=== PATIENT | female | born 1940 | race Caucasian/White ===

== ENCOUNTER → 2017-02-09 | Outpatient (CLI) | payer MEDICARE, MEDICAID ==
--- NOTE | 2017-02-09 11:29 | RADIOLOGY REPORT (SQ) ---
EXAM DESCRIPTION: SHOULDER BILAT 2 OR MORE VIEWS COMPLETED DATE/TIME: 02/09/2017 11:16 am REASON FOR STUDY: BILATERAL SHOULDER PAIN (M25.511,M25.512), PAIN (R52) M25.512 PAIN IN LEFT SHOULD ER M25.511 PAIN IN RIGHT SHOULDER R52 PAIN, UNSPECIFIED COMPARISON: None. NUMBER OF VIEWS: Three views. TECHNIQUE: Internal rotation, external rotation, and Y view images acquired of the right and left sh oulder. LIMITATIONS: None. FINDINGS: MINERALIZATION: Osteopenia. BONES: No acute fracture or dislocation. No worrisome bone lesions. JOINTS: No dislocation. VISUALIZED LUNGS AND RIBS: No pneumothorax. No rib fracture. SOFT TISSUES: No radiopaque foreign body. OTHER: No other significant finding. IMPRESSION: NEGATIVE STUDY OF THE RIGHT AND LEFT SHOULDERS. NO RADIOGRAPHIC EVIDENCE OF ACUTE INJURY . TECHNICAL DOCUMENTATION: JOB ID: [id number] [employer]- All Rights Reserved
--- NOTE | 2017-02-09 11:32 | RADIOLOGY REPORT (SQ) ---
EXAM DESCRIPTION: CERV SP 4 OR 5 VIEWS COMPLETED DATE/TIME: 02/09/2017 11:16 am REASON FOR STUDY: BILATERAL SHOULDER PAIN (M25.511,M25.512), PAIN (R52) M25.512 PAIN IN LEFT SHOULD ER M25.511 PAIN IN RIGHT SHOULDER R52 PAIN, UNSPECIFIED COMPARISON: 04/13/2016 NUMBER OF VIEWS: Five views. TECHNIQUE: AP, lateral, obliques and odontoid radiographic images acquired of the cervical spine. LIMITATIONS: None. FINDINGS: MINERALIZATION: Osteopenia ALIGNMENT: Anatomic. VERTEBRAE: Vertebral bodies of normal height. DISCS: Minimal disc space narrowing at C5-6 and C6-7. FORAMINA: There is narrowing of the right neural foramen at C4-5 secondary to uncovertebral osteophyt es and mild facet hypertrophy. Similar changes are present C5-6 on the right. On the left side ther e is mild narrowing at C4-5. LATERAL AND POSTERIOR ELEMENTS: Mild hypertrophic facet change in the upper cervical spine. HARDWARE: None in the spine. SOFT TISSUES: No masses or calcifications. Lung apices clear. OTHER: No other significant finding. IMPRESSION: Mild degenerative disc changes. Spondylosis and facet arthropathy. TECHNICAL DOCUMENTATION: JOB ID: [id number] [employer] All Rights Reserved
== END ==
LOC: RAD 10:45
PROVIDERS: ATTEND Obstetrics & Gynecology
DX: M25.512 Pain in left shoulder (principal); M25.511 Pain in right shoulder; M81.0 Age-related osteoporosis without current pathological fracture; R68.89 Other general symptoms and signs
CPT/HCPCS: 72050

== ENCOUNTER → 2017-04-24 | Outpatient (CLI) | payer MEDICARE, MEDICAID ==
--- NOTE | 2017-04-24 14:55 | RADIOLOGY REPORT (SQ) ---
EXAM DESCRIPTION: MRI LT UPPER JOINT WITHOUT COMPLETED DATE/TIME: 04/24/2017 2:18 pm REASON FOR STUDY: COMPLETE ROTATOR CUFF TEAR OR LEFT SHOULDER, NOT SPECIFIED TRAUMATIC M75.122 C OMPLETE ROTATR-CUFF TEAR/RUPTR OF LEFT SHOULDER, NO COMPARISON: Left shoulder plain films 02/09/2017 TECHNIQUE: Left shoulder images acquired and stored on PACS. Multiplanar imaging to include fat sens itive sequences such as T1, water sensitive sequences such as FST2/STIR, cartilage sensitive sequence s such as FSPD/gradient-echo sequences. LIMITATIONS: None. FINDINGS: BONE MARROW AND CORTEX: Subcortical cyst formation in the greater tuberosity left humeral head JOINT OR BURSAL EFFUSION: Moderate-sized joint effusion. There is fluid in the subcoracoid recess co ntaining several small subcentimeter loose bodies. There is also fluid in the axillary recess contai jhoan several small loose bodies. Small amount of fluid in the subacromial/ subdeltoid bursa. GLENO-HUMERAL ARTICULATION: No malalignment. Osteoarthritis with thinning of the articular cartilage over the superior surface of the humeral head ACROMION AND AC JOINT: Type 4 acromion with moderate acromioclavicular joint hypertrophy and mild na rrowing of the subacromial space. ROTATOR CUFF AND INTERVAL: There is high signal along the anterior edge of the subscapularis tendon e xtending into the rotator interval region from tendinopathy. Small full-thickness distal supraspinat us tear is suspected on sagittal images 3 and 4, and coronal images 8 and 9. Tendinopathy at the dis bela attachment of the subscapularis without definite tear. Infraspinatus, teres minor are unremarkab le LABRUM AND BICEPS LABRAL COMPLEX: Intra-articular long head biceps tendon is diffusely high in signa l from tendinopathy. Diffusely small glenoid labrum without paralabral cyst. PERIARTICULAR AND ADJACENT SOFT TISSUES: No masses or abnormal nodes. OTHER: No other significant finding. IMPRESSION: Small tear anterior attachment of the supraspinatus tendon Intra-articular long head biceps tendinopathy with diffusely degenerated labrum Joint effusion with loose bodies in the subcoracoid and axillary recesses TECHNICAL DOCUMENTATION: JOB ID: [id number] [employer]- All Rights Reserved
== END ==
LOC: RAD 12:59
PROVIDERS: ATTEND Orthopaedic Surgery
DX: M75.122 Complete rotator cuff tear or rupture of left shoulder, not specified as traumatic (principal)

== ENCOUNTER → 2017-08-03 | Outpatient (CLI) | payer MEDICARE, MEDICAID ==
--- NOTE | 2017-08-03 13:29 | RADIOLOGY REPORT (SQ) ---
EXAM DESCRIPTION: HAND LEFT 3 VIEWS COMPLETED DATE/TIME: 08/03/2017 11:31 am REASON FOR STUDY: S/P DISLOCATION L INDEX MTP JOINT COMPARISON: None. EXAM PARAMETERS: NUMBER OF VIEWS: Three views. TECHNIQUE: AP, lateral and oblique radiographic images acquired of the left hand. LIMITATIONS: None. FINDINGS: MINERALIZATION: Osteopenia. BONES: No acute fracture or dislocation. No worrisome bone lesions. JOINTS: Degenerative joint changes are seen in the interphalangeal joints, particularly distal interp halangeal joints. Milder degenerative joint changes seen in the 1st carpometacarpal joint. SOFT TISSUES: No soft tissue swelling. No foreign body. OTHER: No other significant finding. IMPRESSION: Degenerative joint disease. No fracture is seen. TECHNICAL DOCUMENTATION: JOB ID: [id number] [employer]- All Rights Reserved Reading location - IP/workstation name: [email or web address]
== END ==
LOC: RAD 10:57
PROVIDERS: ATTEND Obstetrics & Gynecology
DX: M18.9 Osteoarthritis of first carpometacarpal joint, unspecified (principal)

== ENCOUNTER 2018-12-23 11:57 | Emergency (ER) | payer MEDICARE, MEDICAID ==
[2018-12-23] MEDS ORDERED: NORMAL SALINE 250 ML IV PRN (12:29)
[2018-12-23 12:47] LABS: ABSOLUTE BASOPHILS # (AUTO) 0.1 10^3/uL (0.0-0.2); ABSOLUTE EOSINOPHILS # (AUTO) 0.1 10^3/uL (0.0-0.6); ABSOLUTE LYMPHOCYTES (AUTO) 1.7 10^3/uL (0.5-4.7); ABSOLUTE MONOCYTES (AUTO) 0.5 10^3/uL (0.1-1.4); ABSOLUTE NEUT (AUTO) 4.2 10^3/uL (1.7-8.2); BASOPHILS % (AUTO) 1.3 % (0-2); EOSINOPHILS % (AUTO) 0.9 % (0-6); HEMATOCRIT 23.9 % (36.0-47.0); LYMPHOCYTES % (AUTO) 25.7 % (13-45); MEAN CORPUSCULAR HEMOGLOBIN 24.5 pg (27.0-33.4); MEAN CORPUSCULAR HGB CONC 31.9 g/dL (32.0-36.0); MEAN CORPUSCULAR VOLUME 77 fl (80-97); MONOCYTES % (AUTO) 7.9 % (3-13); PLATELET COUNT 253 10^3/uL (150-450); RED CELL DISTRIBUTION WIDTH 16.3 % (11.5-14.0); SEGMENTED NEUTROPHILS % (AUTO) 64.2 % (42-78); TOTAL CELLS COUNTED % (AUTO) 100 %; WHITE BLOOD COUNT 6.5 10^3/uL (4.0-10.5)
[2018-12-23 12:50] LABS: HEMOGLOBIN 7.6 g/dL (12.0-15.5)
[2018-12-23 12:52] LABS: INTERNATIONAL RATION (INR) 0.98
[2018-12-23 13:10] LABS: ALANINE AMINOTRANSFERASE 28 U/L (9-52); ALBUMIN 3.9 g/dL (3.5-5.0); ALKALINE PHOSPHATASE 98 U/L (38-126); ANION GAP 6 (5-19); ASPARTATE AMINO TRANSFERASE 26 U/L (14-36); BILIRUBIN,DIRECT 0.2 mg/dL (0.0-0.4); BILIRUBIN,TOTAL 0.4 mg/dL (0.2-1.3); BLOOD UREA NITROGEN 15 mg/dL (7-20); CALCIUM 9.1 mg/dL (8.4-10.2); CARBON DIOXIDE 28 mmol/L (22-30); CHLORIDE 106 mmol/L (98-107); CREATINE KINASE 119 U/L (30-135); GLUCOSE 100 mg/dL (75-110); POTASSIUM 3.8 mmol/L (3.6-5.0); TOTAL PROTEIN 6.7 g/dL (6.3-8.2)
--- NOTE | 2018-12-23 13:33 | ER Document Report ---
ED GI Bleed / Rectal Pain - General Chief Complaint: Rectal Bleeding Stated Complaint: RECTAL BLEEDING Time Seen by Provider: 12/23/18 12:13 Primary Care Provider: ANDREW HOLLINGSWORTH MD [Primary Care Provider] - Follow up as needed DEREK SORIANO MD [ACTIVE STAFF] - Follow up tomorrow (Call in the morning to schedule an appointment tomorrow.) Mode of Arrival: Ambulatory Information source: Patient, Relative Notes: This 78-year-old female patient was sent from the office today for hemoglobin 5.5 and rectal bleeding. She was also noted to be hypotensive. 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 She was diagnosed is clinically cured according to her history. She reports 6 to 7 months ago she began having bleeding after bowel movements, she said it seemed like the stool was irritating something on the way out. She reports that she would sometimes have bright red bleeding, then dark clots, then the bleeding would stop. She has been feeling lightheaded with some exertional weakness for the past several days. She states that she has been referred for evaluation, but everyone she talked to wanted to do colonoscopy and she was unwilling to do that due to the colon cintia nse causing problems in the past. She states no one was willing to do anoscopy. She reports that night 11/2018 she woke up with active bright red bleeding. She reports it is been light bleeding since then. TRAVEL OUTSIDE OF THE [place] IN LAST 30 DAYS: No - Related Data Allergies/Adverse Reactions: codeine Allergy (Verified 12/23/18 12:02) morphine Allergy (Verified 12/23/18 12:02) Past Medical History - General Information source: Patient, Relative - Social History Smoking Status: Former Smoker - Quit in 1996. Cigarette use (# per day): No Chew tobacco use (# tins/day): No Smoking Education Provided: No Frequency of alcohol use: None Drug Abuse: Marijuana Occupation: Retired Lives with: Family Family History: Reviewed & Not Pertinent Patient has suicidal ideation: No Patient has homicidal ideation: No Pulmonary Medical History: Reports: Hx COPD Endocrine Medical History: Reports: Hx Hypothyroidism Malignancy Medical History: Reports: Other - Rectal cancer Musculoskeletal Medical History: Reports Hx Arthritis - spinal osteoarthritis on chronic pain management with Percocet 10 mg QID Psychiatric Medical History: Reports: Hx Anxiety Past Surgical History: Reports: Hx Hysterectomy, Hx Orthopedic Surgery - L hip replacement, Hx Rectal Surgery - Distal rectal biopsy prior to cancer treatment in 2008. Review of Systems - Review of Systems Constitutional: No symptoms reported EENT: No symptoms reported Cardiovascular: Lightheaded Respiratory: No symptoms reported Gastrointestinal: See HPI - Patient reports some abdominal cramping prior to bleeding. Genitourinary: No symptoms reported Female Genitourinary: Post menopausal Musculoskeletal: Back pain Skin: No symptoms reported Neurological/Psychological: No symptoms reported Physical Exam - Vital signs Vitals: Temp Pulse Resp BP Pulse Ox 98.5 F 67 16 154/65 H 96 12/23/18 12:05 12/23/18 12:05 12/23/18 12:05 12/23/18 12:05 12/23/18 12:05 Interpretation: Normal - General General appearance: Appears well, Alert In distress: None - HEENT Head: Normocephalic, Atraumatic Eyes: Normal, Pale conjunctiva Pupils: PERRL Neck: Normal - Respiratory Respiratory status: No respiratory distress Breath sounds: Normal - Cardiovascular Rhythm: Regular Heart sounds: Normal auscultation Murmur: No - Abdominal Inspection: Normal Bowel sounds: Normal Tenderness: Nontender - Rectal Tenderness: Yes Stool: Other - No stool in the vault, residue not show any blood. Hemorrhoids: None Notes: There is anal stenosis with a constricting tight ring. This is likely due to the prior radiation treatments. - Back Back: Normal - Extremities General upper extremity: Other - Nailbeds are little pale General lower extremity: Normal inspection - Neurological Neuro grossly intact: Yes - Psychological Associated symptoms: Normal affect, Normal mood - Skin Skin Temperature: Warm Skin Moisture: Dry Skin Color: Normal Course - Re-evaluation Re-evalutation: 12/23/18 18:07 The patient has not had any active bleeding since she arrived in the emergency room today. The patient's blood pressure was quite high when she came in and remained that way. She was given 10 mg hydralazine IV, eventually the pressure came down to a systolic of 133. She is not normally on blood pressure medications, and reports her blood pressure is usually very low. We will not start treatment at this time, but she will follow-up with her primary care, as she is going to be seen by the general surgeon tomorrow, when they check her vital signs if the BP is elevated they can refer her back to her primary care provider. - Vital Signs Vital signs: Temp Pulse Resp BP Pulse Ox 98 F 94 21 H 138/42 H 100 12/23/18 16:05 12/23/18 16:05 12/23/18 16:31 12/23/18 16:31 12/23/18 16:31 - Laboratory Result Diagrams: 12/23/18 12:20 12/23/18 12:20 Laboratory results interpreted by me: 12/23/18 12/23/18 12/23/18 12:20 12:20 12:20 RBC 3.10 L Hgb 7.6 L Hct 23.9 L MCV 77 L MCH 24.5 L MCHC 31.9 L RDW 16.3 H Iron 20.2 L Vitamin B12 226.0 L Crossmatch See Detail 12/23/18 13:18 RBC Hgb Hct MCV MCH MCHC RDW Iron Vitamin B12 Crossmatch See Detail - Consults Dr. Soriano Time consulted: 17:48 Consulted provider: follow-up in office - We will see in the office tomorrow. Have her call in the morning for an appointment time tomorrow. - Transfer of Care Care transferred to following provider: Dr. Surinder Matos Notes: 12/23/18 18:15 Patient is waiting for her second unit of blood to be transfused, and then she will be ready to go home. Critical Care Note - Critical Care Note Total time excluding time spent on procedures (mins): 35 Discharge - Discharge Clinical Impression: Rectal bleeding, Acute on chronic blood loss anemia, Iron deficiency anemia due to chronic blood loss, Elevated blood pressure reading Hypertension Qualifiers: Hypertension type: essential hypertension Qualified Code(s): I10 - Essential (primary) hypertension Condition: Stable Disposition: HOME, SELF-CARE Additional Instructions: Call Dr. Soriano tomorrow morning to schedule an appointment in the office for tomorrow. If your blood pressure is elevated when you see Dr. Soriano in the office tomorrow, ask him to refer you back to Dr. Hollingsworth. RETURN TO THE EMERGENCY ROOM IF ANY NEW OR WORSENING SYMPTOMS. Referrals: ANDREW HOLLINGSWORTH MD [Primary Care Provider] - Follow up as needed DEREK SORIANO MD [ACTIVE STAFF] - Follow up tomorrow (Call in the morning to schedule an appointment tomorrow.)
[2018-12-23 13:46] LABS: ABSOLUTE RETICS # 0.076 10^6/uL (0.028-0.122); RETICULOCYTE COUNT (AUTO) 2.44 % (0.66-2.85)
[2018-12-23 14:30] LABS: APPEARANCE,URINE CLEAR; BILIRUBIN,URINE NEGATIVE (NEGATIVE); COLOR,URINE STRAW; GLUCOSE, URINE NEGATIVE (NEGATIVE); KETONES,URINE NEGATIVE (NEGATIVE); LEUKOCYTE ESTERASE,URINE NEGATIVE (NEGATIVE); NITRITE,URINE NEGATIVE (NEGATIVE); PROTEIN,URINE NEGATIVE (NEGATIVE); URINE SPECIFIC GRAVITY 1.006; UROBILINOGEN,URINE NEGATIVE mg/dL (<2.0)
[2018-12-23] MEDS ORDERED: HYDRALAZINE HCL INJ/PF 20 MG/1 ML SDV IV ONE (15:06)
[2018-12-23 15:53] LABS: IRON(TIBC) 20.2 ug/dL (37-170)
[2018-12-23 21:35] VITALS: BP 188/90
== END 2018-12-23 21:19 | disposition home or self-care (01) ==
LOC: ER 11:57
DX: K62.5 Hemorrhage of anus and rectum (principal); D50.0 Iron deficiency anemia secondary to blood loss (chronic); I10 Essential (primary) hypertension; R42 Dizziness and giddiness; R53.1 Weakness; Z85.048 Personal history of other malignant neoplasm of rectum, rectosigmoid junction, and anus; Z87.891 Personal history of nicotine dependence; J44.9 Chronic obstructive pulmonary disease, unspecified
CPT/HCPCS: 99285; 96374; 86900; 86901; 36415; 36430; 86850; 82607; 82550; 82728; 82746; 83540; 83550; 85025; 85610; 85045; 80053; 81001; 84484; 86920; P9016; J0360

== ENCOUNTER → 2019-01-09 | Day surgery (SDC) | payer MEDICARE, MEDICAID ==
[~2019-01-09] MED LIST: BUPIVACAINE HCL 0.5 % INJ/PF 30 ML SDV ONE; LIDOCAINE 1% INJ-PF (10 MG/ML) 30 ML SDV ONE
--- NOTE | 2019-01-09 09:38 | Operative Report ---
PREOPERATIVE DIAGNOSIS: Spondylolisis without myopathy or radiculopathy M47.818// Lumbar Sacral Spondylolisis without myopathy or radiculopathy M47.817 POSTOPERATIVE DIAGNOSIS:Spondylolisis without myopathy or radiculopathy M47.818// Lumbar Sacral Spondylolisis without myopathy or radiculopathy M47.817 PROCEDURE: 1. Radiofrequency Ablation of bilateral L5 dorsal Ramus 2. Sacroiliac Joint Ablation - Lateral Branches of bilateral S1, S2, S3 DATE OF PROCEDURE: January 09, 2019 ANESTHESIA: Local COMPLICATIONS: None CONSENT: A full description of the procedure was provided including benefits as well as possible complications. All questions were answered and informed consent was given and signed. ASA guidelines for fasting were verified prior to se dation. PROCEDURE IN DETAIL The patient was brought into the fluoroscopy suite and carefully assisted into the prone position on the fluoroscopy table and allowed to adjust to a position of comfort. A grounding pad was placed on the right thigh. The low back and buttocks were widely prepped with a chloraprep solution, allowed to air dry and draped in standard sterile surgical fashion. Local anesthesia was provided by 12 mL of 1 % lidocaine delivered with a 25 g needle. PROCEDURE #1: Radiofrequency Ablation of Dorsal Ramus of bilateral L5. A 17g 100mm radiofrequency introducer needle was placed to the planned anatomic target, guided with intermittent fluoroscopy with a perpendicular approach, to terminally place at the lateral sacral ala. The stylets were removed and the radiofrequency probes with a 4mm active tip were then inserted. Needle tip position of the probes were verified in the AP, oblique, and lateral views. At each site, the medial branch nerve was stimulated at 2Hz to a maximum of 1- 2volts determined to finalize safe needle and electrode placement. The patient was awake and responsive during this portion of the procedure. Each target was anesthetized with 2mL of 2 % Sensorcaine anesthesia for lesioning and then each target was lesioned at 80 degrees Celsius for 2 minutes and 30 seconds. Tissue impedences were noted to be between 250 and 500 Ohms. PROCEDURE #2: Radiofrequency Ablation of bilateral S1, S2, S3 Lateral Branches Using the AP fluoroscopic view for visualization of the lateral PSFA as defined by the pre-placed 27-gauge Quincke needles, appropriate skin starting positions were defined. Using the PSFA as a "clock-face", the positions were: S1; bilateral = 1 and 5 oclock S2; bilateral = 1 and 5 oclock S3; bilateral = 3 oclock Using fluoroscopic guidance, a 17g introducer needle was inserted sequentially onto the target positions described above until the introducer tip touched the bony surface of the sacrum. The stylet was withdrawn from the introducer and the radiofrequency probe with a 4 mm active tip was fully inserted into the introducer. A lateral view was obtained for standard reference. At each of the targets, needle placement was verified with the use of multi-planar fluoroscopy. The needle tip position was approximately 7 - 10mm lateral to the PSFA as determined by using an Epsilon ruler. At each site, the lateral branch nerve was stimulated at 2 Hz to a maximum of 1- 2 volts determined to finalize safe needle and electrode placement. The patient was awake and responsive during this portion of the procedure. Each target was anesthetized with 2 mL of 2 % Sensorcaine anesthesia for lesioning and then each target was lesioned at 80 degrees Celsius for 2 minutes and 30 seconds. Tissue impedences were noted to be between 250- 500 Ohms. At the conclusion of the lesioning the needles were removed and bandages placed over the needle placement sites and the patient returned to the supine position on a stretcher and transported to the recovery room without hemodynamic, neurologic, or allergic reactions. Fluoroscopic images were printed for hard copy recording and digitally archived. FLUOROSCOPIC INTERPRETATION: Appropriate epidurogram obtained. Appropriate lesioning of the 10 targets noted. POST PROCEDURE EVALUATION: The patient was comfortable in the recovery room. The patient is aware that pain may worsen before remitting and 4 6 weeks may be required prior to the onset of pain relief. IMPRESSION: 1. Technically successful sacral lateral branch, lumbar dorsal ramus for denervation from L5-S3 on the bilateral without complication. 2. RTC in 2 weeks. 3. Estimated Blood Loss: None 4. Fluoroscopy time: 30 seconds
== END ==
LOC: RAD 09:10
PROVIDERS: ATTEND Family Medicine
DX: M47.817 Spondylosis without myelopathy or radiculopathy, lumbosacral region (principal)
CPT/HCPCS: 64635; 64640 ×3; J3490 ×2

== ENCOUNTER 2019-01-16 09:58 | Observation (INO) | payer MEDICARE, MEDICAID ==
[2019-01-06 11:44] LABS: HEMATOCRIT 31.7 % (36.0-47.0); HEMOGLOBIN 10.1 g/dL (12.0-15.5); MEAN CORPUSCULAR HEMOGLOBIN 25.6 pg (27.0-33.4); MEAN CORPUSCULAR HGB CONC 31.9 g/dL (32.0-36.0); MEAN CORPUSCULAR VOLUME 80 fl (80-97); PLATELET COUNT 241 10^3/uL (150-450); RED BLOOD COUNT 3.95 10^6/uL (3.72-5.28); RED CELL DISTRIBUTION WIDTH 17.5 % (11.5-14.0); WHITE BLOOD COUNT 4.7 10^3/uL (4.0-10.5)
[2019-01-06 12:00] LABS: ANION GAP 8 (5-19); BLOOD UREA NITROGEN 12 mg/dL (7-20); CALCIUM 9.1 mg/dL (8.4-10.2); CARBON DIOXIDE 30 mmol/L (22-30); CHLORIDE 102 mmol/L (98-107); GLUCOSE 98 mg/dL (75-110); POTASSIUM 3.6 mmol/L (3.6-5.0)
--- NOTE | 2019-01-07 09:46 | EKG REPORT ---
SEVERITY:- ABNORMAL ECG - SINUS RHYTHM CONSIDER POSTERIOR INFARCT BORDERLINE PROLONGED QT INTERVAL : Confirmed by: Dorcas Ramírez 07-Jan-2019 09:45:40
[~2019-01-16 09:58] MED LIST changes: +ACETAMINOPHEN 325 MG TABLET PO PRN; -BUPIVACAINE HCL 0.5 % INJ/PF 30 ML SDV ONE; +LIDOCAINE 0.5% INJ-PF (5 MG/ML) 50 ML SDV SUBCUT PRN; -LIDOCAINE 1% INJ-PF (10 MG/ML) 30 ML SDV ONE; +RINGERS SOLUTION,LACTATED 1,000 ML IV PRN
[2019-01-16 11:41] LABS: HEMATOCRIT 27.2 % (36.0-47.0); HEMOGLOBIN 8.7 g/dL (12.0-15.5); MEAN CORPUSCULAR HGB CONC 32.1 g/dL (32.0-36.0); MEAN CORPUSCULAR VOLUME 78 fl (80-97); PLATELET COUNT 227 10^3/uL (150-450); RED BLOOD COUNT 3.48 10^6/uL (3.72-5.28); RED CELL DISTRIBUTION WIDTH 17.6 % (11.5-14.0); WHITE BLOOD COUNT 5.4 10^3/uL (4.0-10.5)
[2019-01-16] MEDS ORDERED: PROPOFOL INJ 200 MG/20 ML VIAL IV ONE (12:47)
[2019-01-16] MEDS ORDERED: MORPHINE SULFATE 10 MG/ML INJ IV PRN (13:50)
[2019-01-16] MEDS ORDERED: DEXTROSE 5%-LACTATED RINGERS 1,000 ML IV PRN (13:50)
--- NOTE | 2019-01-16 14:29 | Operative Report ---
Nonrecallable Operative Report DATE OF SURGERY: 01/16/19 PREOPERATIVE DIAGNOSIS: History of rectal cancer lower GI bleed POSTOPERATIVE DIAGNOSIS: Rectal cancer lower GI bleed OPERATION: Colonoscopy SURGEON: YVETTE MERCHANT ANESTHESIA: Moderate Sedation TISSUE REMOVED OR ALTERED: None COMPLICATIONS: None ESTIMATED BLOOD LOSS: 0 INTRAOPERATIVE FINDINGS: See dictation PROCEDURE: Patient was brought to the operating room awake alert stable condition and given IV sedation for this procedure she was placed in a left lateral decubitus position the Olympus colonoscope was easily passed into the rectum and traversed the sigmoid colon up to approximately 40 cm no evidence of active bleeding to th is point 40 cm the scope had difficulty negotiating the sigmoid colon and it was difficult to see whether that was secondary to redundant colon versus a diverticular stricture there are multiple diverticulum seen in the sigmoid colon. I asked Dr. Bower from to come into the operating room for consultation regarding the difficulty in passing the scope past 40 cm he suggested that may be secondary to a diverticular stricture versus peridiverticular edema and therefore we did not persist in trying to advance the scope past 40 cm. As we slowly withdrew the scope we noted multiple diverticuli in the sigmoid colon as we count came through the rectum there was no evidence of any masses or mucosal abnormalities we visualized the hemorrhoids there were small grade 2 hemorrhoids without evidence of recent or active bleeding. Then removed the scope which completed the procedure Patient will be admitted overnight to the hospital for a blood transfusion and obtain a barium enema tomorrow. Sponge needle counts were correct x2 estimated blood loss was 0
[2019-01-16 18:28] LABS: HEMOGLOBIN 9.3 g/dL (12.0-15.5); MEAN CORPUSCULAR HEMOGLOBIN 26.4 pg (27.0-33.4); MEAN CORPUSCULAR HGB CONC 33.2 g/dL (32.0-36.0); MEAN CORPUSCULAR VOLUME 80 fl (80-97); PLATELET COUNT 209 10^3/uL (150-450); RED BLOOD COUNT 3.52 10^6/uL (3.72-5.28); RED CELL DISTRIBUTION WIDTH 17.1 % (11.5-14.0); WHITE BLOOD COUNT 8.8 10^3/uL (4.0-10.5)
[2019-01-16] MEDS ORDERED: HYDRALAZINE HCL INJ/PF 20 MG/1 ML SDV IV PRN (21:07)
[2019-01-16] MEDS: FAMOTIDINE INJ/PF 20 MG/2 ML SDV IV SCH (21:27)
[2019-01-17 02:27] LABS: ABSOLUTE LYMPHOCYTES (AUTO) 1.1 10^3/uL (0.5-4.7); ABSOLUTE MONOCYTES (AUTO) 0.5 10^3/uL (0.1-1.4); BASOPHILS % (AUTO) 0.6 % (0-2); EOSINOPHILS % (AUTO) 0.2 % (0-6); HEMATOCRIT 32.5 % (36.0-47.0); HEMOGLOBIN 11.1 g/dL (12.0-15.5); LYMPHOCYTES % (AUTO) 12.9 % (13-45); MEAN CORPUSCULAR VOLUME 79 fl (80-97); MONOCYTES % (AUTO) 6.2 % (3-13); PLATELET COUNT 202 10^3/uL (150-450); RED CELL DISTRIBUTION WIDTH 16.9 % (11.5-14.0); SEGMENTED NEUTROPHILS % (AUTO) 80.1 % (42-78); TOTAL CELLS COUNTED % (AUTO) 100 %; WHITE BLOOD COUNT 8.7 10^3/uL (4.0-10.5)
[2019-01-17] MEDS ORDERED: LORAZEPAM INJ 2 MG/1 ML VIAL IV ONE (03:15)
[2019-01-17 06:41] LABS: ABSOLUTE BASOPHILS # (AUTO) 0.1 10^3/uL (0.0-0.2); ABSOLUTE LYMPHOCYTES (AUTO) 1.3 10^3/uL (0.5-4.7); ABSOLUTE MONOCYTES (AUTO) 0.5 10^3/uL (0.1-1.4); ABSOLUTE NEUT (AUTO) 5.8 10^3/uL (1.7-8.2); BASOPHILS % (AUTO) 0.7 % (0-2); HEMATOCRIT 30.7 % (36.0-47.0); HEMOGLOBIN 10.3 g/dL (12.0-15.5); LYMPHOCYTES % (AUTO) 16.8 % (13-45); MEAN CORPUSCULAR HEMOGLOBIN 26.9 pg (27.0-33.4); MEAN CORPUSCULAR HGB CONC 33.6 g/dL (32.0-36.0); MEAN CORPUSCULAR VOLUME 80 fl (80-97); MONOCYTES % (AUTO) 6.1 % (3-13); PLATELET COUNT 186 10^3/uL (150-450); RED BLOOD COUNT 3.83 10^6/uL (3.72-5.28); RED CELL DISTRIBUTION WIDTH 17.1 % (11.5-14.0); SEGMENTED NEUTROPHILS % (AUTO) 76.4 % (42-78); TOTAL CELLS COUNTED % (AUTO) 100 %; WHITE BLOOD COUNT 7.5 10^3/uL (4.0-10.5)
[2019-01-17 06:53] LABS: ANION GAP 6 (5-19); BLOOD UREA NITROGEN 9 mg/dL (7-20); CARBON DIOXIDE 28 mmol/L (22-30); CHLORIDE 104 mmol/L (98-107); GLUCOSE 114 mg/dL (75-110)
[2019-01-17 07:03] LABS: POTASSIUM 2.9 mmol/L (3.6-5.0)
[2019-01-17] MEDS ORDERED: DEXTROSE 50%-WATER 25 GM/50 ML DISP.SYRIN IV PRN ×2 (07:50)
[2019-01-17] MEDS ORDERED: DEXTROSE 40% GEL 15 GM TUBE PO PRN ×2 (07:50)
[2019-01-17] MEDS ORDERED: GLUCAGON,HUMAN RECOMB 1 MG INJ SUBCUT PRN (07:50)
--- NOTE | 2019-01-17 08:55 | PDOC PROGRESS REPORT ---
Subjective Progress Note for:: 01/17/19 Reason For Visit: LOWER GI BLEED s/p colonoscopy lower gi bleed. Physical Exam Vital Signs: Temp Pulse Resp BP Pulse Ox 99.5 F 72 16 163/87 H 98 01/16/19 23:45 01/16/19 23:45 01/16/19 23:45 01/16/19 23:45 01/16/19 23:45 Intake & Output 01/16/19 01/17/19 01/18/19 06:59 06:59 06:59 Intake Total 700 Output Total 0 Balance 700 Weight 54.4 kg General appearance: PRESENT: no acute distress Head exam: PRESENT: normocephalic Eye exam: PRESENT: EOMI Ear exam: PRESENT: normal external ear exam Mouth exam: PRESENT: moist Teeth exam: PRESENT: edentulous Neck exam: PRESENT: full ROM Respiratory exam: PRESENT: clear to auscultation zainab Cardiovascular exam: PRESENT: RRR Pulses: PRESENT: normal radial pulses, normal femoral pulses Vascular exam: PRESENT: normal capillary refill GI/Abdominal exam: PRESENT: soft Rectal exam: PRESENT: deferred Extremities exam: PRESENT: full ROM Musculoskeletal exam: PRESENT: full ROM Neurological exam: PRESENT: alert, awake, oriented to person Skin exam: PRESENT: dry Results Laboratory Results: 01/17/19 06:10 01/17/19 06:10 01/16/19 01/16/19 01/16/19 11:27 12:34 18:14 WBC 5.4 8.8 RBC 3.48 L 3.52 L Hgb 8.7 L 9.3 L Hct 27.2 L 28.0 L MCV 78 L 80 MCH 25.0 L 26.4 L MCHC 32.1 33.2 RDW 17.6 H 17.1 H Plt Count 227 209 Seg Neutrophils % Sodium Potassium Chloride Carbon Dioxide Anion Gap BUN Creatinine Est GFR ( Amer) Glucose Calcium Blood Type O POSITIVE Antibody Screen NEGATIVE 01/17/19 01/17/19 01/17/19 02:21 06:10 06:10 WBC 8.7 7.5 RBC 4.10 3.83 Hgb 11.1 L 10.3 L Hct 32.5 L 30.7 L MCV 79 L 80 MCH 27.0 26.9 L MCHC 34.0 33.6 RDW 16.9 H 17.1 H Plt Count 202 186 Seg Neutrophils % 80.1 H 76.4 Sodium 138.2 Potassium 2.9 L* Chloride 104 Carbon Dioxide 28 Anion Gap 6 BUN 9 Creatinine 0.61 Est GFR ( Amer) > 60 Glucose 114 H Calcium 9.0 Blood Type Antibody Screen Assessment & Plan - Plan Summary Plan Summary: lower gi bleed no currentl evidence of bleeding. hx of anal cancer s/p colonoscopy yesterday to 40cm multiple diverticuli, no obvious bleeding awaiting BE today to r/o stricture at above 40cm h/h 10. 3 this am down from 11.1 yesterday after txn 2 units prbc
[2019-01-17] MEDS: POTASSIUM CHLORIDE 20 MEQ/50 ML RTU IV SCH ×3 (09:16→15:52)
[2019-01-17] MEDS: FAMOTIDINE INJ/PF 20 MG/2 ML SDV IV SCH ×2 (09:35→22:04)
--- NOTE | 2019-01-17 11:24 | RADIOLOGY REPORT (SQ) ---
EXAM DESCRIPTION: BARIUM ENEMA W/AIR COMPLETED DATE/TIME: 01/17/2019 11:02 am REASON FOR STUDY: lower gi bleed. poss diverticular stricture K62.5 HEMORRHAGE OF ANUS AND RECTUM Z 85.048 PRSNL HX OF MALIG NEOPLM OF RECTUM, RECTOSIG JUNCT, Z01.818 ENCOUNTER FOR OTHER PREPROCEDUR AL EXAMINATION History of anal cancer, treated COMPARISON: None. FLUOROSCOPY TIME: 4 minutes of fluoroscopy was used. 26 images saved to PACS. TECHNIQUE: Following retrograde filling of the colon with barium and air, fluoroscopic spot and over head imaging of the colon was obtained and saved to PACS. LIMITATIONS: None. FINDINGS: ELEPHANT KEEPER KUB: Normal abdominal film with adequate bowel prep. CECUM: Normal mucosa without intraluminal filling defects, intrinsic or extrinsic masses, or lesions. There is reflux contrast into the terminal ileum. There is retrograde filling of a normal-appearin g appendix. ASCENDING COLON: Normal mucosa without intraluminal filling defects, intrinsic or extrinsic masses, o r lesions. TRANSVERSE COLON: Normal mucosa without intraluminal filling defects, intrinsic or extrinsic masses, or lesions. DESCENDING COLON: Normal mucosa without intraluminal filling defects, intrinsic or extrinsic masses, or lesions. SIGMOID COLON: Few scattered diverticulum noted. No strictures identified. No masses identified. RECTUM: Normal mucosa without intraluminal filling defects, intrinsic or extrinsic masses, or lesions . The patient experienced moderate discomfort with insertion of the enema tube and retention balloon insufflation. There appears to be diffuse narrowing of the rectum, possibly due to previous therapy and treatment of anal cancer. POST EVAC: Partial evacuation of barium with no additional findings. OTHER: No other significant finding. IMPRESSION: 1. THE RECTUM IS NARROWED AND POORLY DISTENDED. MODERATE DISCOMFORT WITH WITH INSERTIO N OF THE ENEMA TIP AND INSUFFLATION OF THE RETENTION BALLOON, COULD BE RELATED TO PREVIOUS RADIATION THERAPY IN TREATMENT OF ANAL CANCER. 2. MILD SIGMOID DIVERTICULOSIS WITHOUT EVIDENCE OF STRICTURE OR MASS. 3. REMAINDER THE COLONS ARE UNREMARKABLE. COMMENT: Quality ID [id number]: Final reports for procedures using fluoroscopy that document radiation exp osure indices, or exposure time and number of fluorographic images (if radiation exposure indices are not available) TECHNICAL DOCUMENTATION: JOB ID: [id number] [employer]- All Rights Reserved Reading location - IP/workstation name: [email or web address] [email or web address]
--- NOTE | 2019-01-17 15:37 | Progress Note ---
Provider Note Provider Note: Air contrast barium enema reviewed. Exam shows no evidence of masses within the colon however there is a proximal r ectal stricture with multiple diverticula in the sigmoid colon questionable stricturing of the sigmoid colon but no obvious obstruction. Suspect the lower GI bleed was secondary to diverticular bleed. We will start the patient on a diet and advance it to regular as tolerated she could be discharged home possibly tomorrow she will follow-up in my office for further discussion related to her second time diverticular bleed.
[2019-01-17] MEDS: POTASSIUM CHLORIDE 20 MEQ PACKET PO SCH (17:57)
[2019-01-18] MEDS: POTASSIUM CHLORIDE 20 MEQ PACKET PO SCH (01:53)
--- NOTE | 2019-01-18 06:41 | PDOC DISCHARGE SUMMARY ---
General - Admit/Disc Date/PCP Admission Date/Primary Care Provider: 01/16/19 17:07 ANDREW HOLLINGSWORTH MD Discharge Date: 01/18/19 - Additional Information Resuscitation Status: Full Code Discharge Diet: As Tolerated Discharge Activity: Activity As Tolerated Home Medications: Alprazolam [Xanax 0.5 mg Tablet] 0.5 mg PO DAILYP PRN 01/17/19 Diclofenac Sodium [Voltaren] 100 gm TP DAILYP PRN 01/17/19 Eszopiclone [Lunesta] 3 mg PO QHS 01/17/19 Oxycodone HCl/Acetaminophen [Percocet 10-325 Mg Tablet] 1 each PO Q6HP PRN 01/17/19 History of Present Illness History of Present Illness: LAVELLE LINDER is a 78 year old female who was admitted to the hospital on 01/16/2019 for elective colonoscopy. She was brought in the hospital electively for a routine colonoscopy during which time we were unable to pass the scope past 40 cm. She had a previous history of lower GI bleed. She had a previous history of anal cancer treated with nigra protocol. Because were unable to pass the scope she was admitted for an elective barium enema the following day. She is undergoing colonoscopy because of history of heme hematochezia and was found upon her admission to the hospital for that elective procedure that she r eported some recurrent hematochezia. She was transfused 2 units of blood on the day of admission for hemoglobin of 8.3 and had no further bleeding throughout her hospital course Her barium enema the following day showed a stricture of her proximal's rectum distal sigmoid colon with multiple diverticula. There is no evidence of any obstructing mass. During the 36 hours here at the hospital she did well she was passing normal bowel movements without further hematochezia. Hospital Course Hospital Course: She was brought in the hospital electively for a routine colonoscopy during which time we were unable to pass the scope past 40 cm. She had a previous history of lower GI bleed. She had a previous history of anal cancer treated with nigra protocol. Because were unable to pass the scope she was admitted for an elective barium enema the following day. She is undergoing colonoscopy because of history of heme hematochezia and was found upon her admission to the hospital for that elective procedure that she reported some recurrent hematochezia. She was transfused 2 units of blood on the day of admission for hemoglobin of 8.3 and had no further bleeding throughout her hospital course Her barium enema the following day showed a stricture of her proximal's rectum distal sigmoid colon with multiple diverticula. There is no evidence of any obstructing mass. During the 36 hours here at the hospital she did well she was passing normal bowel movements without further hematochezia On the day of discharge she is afebrile stable vital signs passing flatus and small bowel movements without blood she is tolerating a regular diet she will be discharged home today with follow-up in 1 to 2 weeks after discharge for further discussion on her diverticulosis and proximal rectal stricture. Physical Exam Vital Signs: Temp Pulse Resp BP Pulse Ox 98.5 F 72 15 150/60 H 100 01/18/19 00:14 01/18/19 00:14 01/18/19 00:14 01/18/19 00:14 01/18/19 00:14 Intake & Output 01/16/19 01/17/19 01/18/19 06:59 06:59 06:59 Intake Total 700 1585 Output Total 0 Balance 700 1585 Weight 54.4 kg 54.7 kg General appearance: PRESENT: no acute distress Head exam: PRESENT: normocephalic Eye exam: PRESENT: EOMI Ear exam: PRESENT: normal external ear exam Mouth exam: PRESENT: moist Neck exam: PRESENT: full ROM Respiratory exam: PRESENT: clear to auscultation azinab Cardiovascular exam: PRESENT: RRR Pulses: PRESENT: normal radial pulses, normal femoral pulses GI/Abdominal exam: PRESENT: soft Rectal exam: PRESENT: deferred Extremities exam: PRESENT: full ROM Musculoskeletal exam: PRESENT: full ROM Neurological exam: PRESENT: alert, awake, oriented to person, oriented to place Psychiatric exam: PRESENT: appropriate affect Skin exam: PRESENT: dry Results Laboratory Results: 01/17/19 06:10 01/17/19 06:10 01/17/19 01/17/19 06:10 06:10 WBC 7.5 RBC 3.83 Hgb 10.3 L Hct 30.7 L MCV 80 MCH 26.9 L MCHC 33.6 RDW 17.1 H Plt Count 186 Seg Neutrophils % 76.4 Sodium 138.2 Potassium 2.9 L* Chloride 104 Carbon Dioxide 28 Anion Gap 6 BUN 9 Creatinine 0.61 Est GFR ( Amer) > 60 Glucose 114 H Calcium 9.0 Impressions: Barium Enema w/ Air Contrast, therapeutic 01/17/19 00:00 IMPRESSION: 1. THE RECTUM IS NARROWED AND POORLY DISTENDED. MODERATE DISCOMFORT WITH WITH INSERTION OF THE ENEMA TIP AND INSUFFLATION OF THE RETENTION BALLOON, COULD BE RELATED TO PREVIOUS RADIATION THERAPY IN TREATMENT OF ANAL CANCER. 2. MILD SIGMOID DIVERTICULOSIS WITHOUT EVIDENCE OF STRICTURE OR MASS. 3. REMAINDER THE COLONS ARE UNREMARKABLE. Qualifiers - * PATIENT BEING DISCHARGED WITH ANY OF THE FOLLOWING DIAGNOSIS: No VTE patient discharged on overlapping Therapy?: No Reason(s) for not prescribing Overlap Therapy:: Not indicated Reason(s) for not prescribing Anti-thrombolytic therapy:: Not indicated Reason(s) for not prescribing Anti-coagulation therapy:: Not indicated Reason(s) for not prescribing Statins therapy:: Not indicated Reason(s) for not prescribing Aspirin therapy:: Not indicated Reason(s) for not prescribing Statin therapy:: Not indicated Reason(s) for not prescribing ACEI/ARBS:: Not indicated Acute Heart Failure - Is this a Heart Failure Patient?: No Plan Time Spent: Less than 30 Minutes - Patient will be given a follow-up appointment with me 1 to 2 weeks after discharge
[2019-01-18 06:54] VITALS: BP 142/84
== END 2019-01-18 08:17 | disposition home or self-care (01) ==
LOC: OROUT 09:58 → 4S 16:15 → OROUT 17:06 → 4S 17:07
PROVIDERS: ADMIT Surgery; ATTEND Surgery
PROC: 30233N1 Transfusion of Nonautologous Red Blood Cells into Peripheral Vein, Percutaneous Approach (ICD-10-PCS; 2019-01-16)
PROC: 0DJD8ZZ Inspection of Lower Intestinal Tract, Via Natural or Artificial Opening Endoscopic (ICD-10-PCS; principal; 2019-01-16 13:30)
DX: K57.31 Diverticulosis of large intestine without perforation or abscess with bleeding (principal); K62.4 Stenosis of anus and rectum; Z85.048 Personal history of other malignant neoplasm of rectum, rectosigmoid junction, and anus; K64.1 Second degree hemorrhoids; F12.90 Cannabis use, unspecified, uncomplicated; Z79.899 Other long term (current) drug therapy; Z92.21 Personal history of antineoplastic chemotherapy; M54.9 Dorsalgia, unspecified; M19.90 Unspecified osteoarthritis, unspecified site; Z92.3 Personal history of irradiation; Z85.828 Personal history of other malignant neoplasm of skin
CPT/HCPCS: 45378; 93005; 86900; 86901; 36415 ×3; 36430; 86850; 85025; 85027 ×2; 80048 ×2; 86920; 74280; 93010; 00811 ×2; P9016; J0360; J3480; J7121; J2704; S0028 ×2; J3490; 811; G0378

== ENCOUNTER → 2019-11-10 | Outpatient (CLI) | payer MEDICARE, MEDICAID ==
[2019-11-10 10:42] LABS: ABSOLUTE LYMPHOCYTES (AUTO) 1.1 10^3/uL (0.5-4.7); ABSOLUTE MONOCYTES (AUTO) 0.4 10^3/uL (0.1-1.4); ABSOLUTE NEUT (AUTO) 4.4 10^3/uL (1.7-8.2); BASOPHILS % (AUTO) 0.7 % (0-2); EOSINOPHILS % (AUTO) 0.2 % (0-6); HEMATOCRIT 26.1 % (36.0-47.0); HEMOGLOBIN 8.7 g/dL (12.0-15.5); LYMPHOCYTES % (AUTO) 18.4 % (13-45); MEAN CORPUSCULAR HEMOGLOBIN 28.5 pg (27.0-33.4); MEAN CORPUSCULAR HGB CONC 33.4 g/dL (32.0-36.0); MEAN CORPUSCULAR VOLUME 86 fl (80-97); MONOCYTES % (AUTO) 7.3 % (3-13); PLATELET COUNT 215 10^3/uL (150-450); RED BLOOD COUNT 3.05 10^6/uL (3.72-5.28); RED CELL DISTRIBUTION WIDTH 14.6 % (11.5-14.0); SEGMENTED NEUTROPHILS % (AUTO) 73.4 % (42-78); TOTAL CELLS COUNTED % (AUTO) 100 %; WHITE BLOOD COUNT 5.9 10^3/uL (4.0-10.5)
== END ==
LOC: OD 10:01
PROVIDERS: ATTEND Surgery
DX: K62.5 Hemorrhage of anus and rectum (principal); Z85.048 Personal history of other malignant neoplasm of rectum, rectosigmoid junction, and anus; K62.89 Other specified diseases of anus and rectum
CPT/HCPCS: 36415; 85025

== ENCOUNTER 2019-11-11 11:42 | Inpatient (IN) | payer MEDICARE, MEDICAID ==
[2019-11-11] MEDS ORDERED: NORMAL SALINE 500 ML IV ONE (12:01)
--- NOTE | 2019-11-11 12:04 | ER Document Report ---
ED Medical Screen (RME) - General Chief Complaint: Rectal Bleeding Stated Complaint: RECTAL BLEEDING Time Seen by Provider: 11/11/19 11:57 Primary Care Provider: YVETTE MERCHANT MD [Primary Care Provider] - Follow up as needed Notes: HPI: 79-year-old female with history of rectal ulcer that has been bleeding over the last 1 to 2 weeks presenting for continued bleeding, dizziness, shortness of breath and rapid heart rate. Patient has been following with Dr. Merchant, and is scheduled for surgery but has continued to have rectal bleeding with clots intermittently over the last 1 to 2 days. States she had similar issues last year and had to be transfused and have surgery PHYSICAL EXAMINATION: Rectal exam deferred in triage. Patient is significantly tachycardic mildly dyspneic with speaking, lung sounds are clear to auscultation I have greeted and performed a rapid initial assessment of this patient. A comprehensive ED assessment and evaluation of the patient, analysis of test results and completion of medical decision making process will be conducted by an additional ED providers. TRAVEL OUTSIDE OF THE [place] IN LAST 30 DAYS: No - Related Data Allergies/Adverse Reactions: codeine Allergy (Verified 01/16/19 11:03) morphine Allergy (Verified 01/16/19 11:03) Home Medications: Oxycodone, Eszopiclone, Voltaren, Xanax Past Medical History - Past Medical History Cardiac Medical History: Denies: Hx Coronary Artery Disease, Hx Heart Attack, Hx Hypertension Pulmonary Medical History: Reports: Hx COPD Denies: Hx Asthma, Hx Bronchitis, Hx Pneumonia Neurological Medical History: Denies: Hx Cerebrovascular Accident, Hx Seizures Endocrine Medical History: Reports: Hx Hypothyroidism Renal/ Medical History: Denies: Hx Peritoneal Dialysis Musculoskeltal Medical History: Reports Hx Arthritis - spinal osteoarthritis on chronic pain management with Percocet 10 mg QID Psychiatric Medical History: Reports: Hx Anxiety Past Surgical History: Reports: Hx Hysterectomy, Hx Orthopedic Surgery - L hip replacement, Hx Rectal Surgery - Distal rectal biopsy prior to cancer treatment in 2008. - Immunizations Hx Diphtheria, Pertussis, Tetanus Vaccination: No Physical Exam - Vital signs Vitals: Temp Pulse Resp BP Pulse Ox 97.7 F 120 H 20 117/71 97 11/11/19 11:53 11/11/19 11:53 11/11/19 11:53 11/11/19 11:53 11/11/19 11:53 Course - Vital Signs Vital signs: Temp Pulse Resp BP Pulse Ox 97.7 F 120 H 20 117/71 97 11/11/19 11:57 11/11/19 11:53 11/11/19 11:53 11/11/19 11:53 11/11/19 11:53 Doctor's Discharge - Discharge Referrals: YVETTE MERCHANT MD [Primary Care Provider] - Follow up as needed
[2019-11-11 13:28] LABS: ABSOLUTE BASOPHILS # (AUTO) 0.1 10^3/uL (0.0-0.2); ABSOLUTE LYMPHOCYTES (AUTO) 1.4 10^3/uL (0.5-4.7); ABSOLUTE MONOCYTES (AUTO) 0.3 10^3/uL (0.1-1.4); BASOPHILS % (AUTO) 1.4 % (0-2); EOSINOPHILS % (AUTO) 0.2 % (0-6); HEMOGLOBIN 8.2 g/dL (12.0-15.5); MEAN CORPUSCULAR HEMOGLOBIN 28.1 pg (27.0-33.4); MEAN CORPUSCULAR HGB CONC 32.9 g/dL (32.0-36.0); MEAN CORPUSCULAR VOLUME 86 fl (80-97); MONOCYTES % (AUTO) 6.8 % (3-13); PLATELET COUNT 238 10^3/uL (150-450); RED BLOOD COUNT 2.92 10^6/uL (3.72-5.28); RED CELL DISTRIBUTION WIDTH 14.8 % (11.5-14.0); SEGMENTED NEUTROPHILS % (AUTO) 62.6 % (42-78); TOTAL CELLS COUNTED % (AUTO) 100 %; WHITE BLOOD COUNT 4.8 10^3/uL (4.0-10.5)
[2019-11-11 13:40] LABS: INTERNATIONAL RATION (INR) 0.97; PROTHROMBIN TIME 12.9 SEC (11.4-15.4)
[2019-11-11 13:46] LABS: ALBUMIN 3.8 g/dL (3.5-5.0); ALKALINE PHOSPHATASE 61 U/L (38-126); ANION GAP 6 (5-19); ASPARTATE AMINO TRANSFERASE 23 U/L (14-36); BILIRUBIN,TOTAL 0.5 mg/dL (0.2-1.3); BLOOD UREA NITROGEN 17 mg/dL (7-20); CALCIUM 9.2 mg/dL (8.4-10.2); CARBON DIOXIDE 29 mmol/L (22-30); CHLORIDE 100 mmol/L (98-107); GLUCOSE 108 mg/dL (75-110); POTASSIUM 3.5 mmol/L (3.6-5.0); TOTAL PROTEIN 6.3 g/dL (6.3-8.2)
--- NOTE | 2019-11-11 15:38 | ER Document Report ---
ED General - General Chief Complaint: Rectal Bleeding Stated Complaint: RECTAL BLEEDING Time Seen by Provider: 11/11/19 11:57 Primary Care Provider: YVETTE MERCHANT MD [Primary Care Provider] - Follow up as needed Mode of Arrival: Ambulatory Information source: Patient TRAVEL OUTSIDE OF THE [place] IN LAST 30 DAYS: No - HPI Onset: Other - over the last week Onset/Duration: Gradual Quality of pain: No pain Severity: Moderate Pain Level: Denies Associated symptoms: Weakness, Other - rectal bleeding Exacerbated by: Other - bowel movements Relieved by: Denies Similar symptoms previously: Yes - 1 year ago when she had a GI Bleed Recently seen / treated by doctor: Yes - Patient seen by Dr. Merchant in his o ffice yesterday Notes: 79 year old female with a history of Colon Cancer, Diverticulitis, COPD, Hypothyroidism, Arthritis, Anxiety here in the ER for off and on rectal bleeding for the last week. The patient says she noticed GI bleeding on Sunday, Sunday, , Sunday last week and Sunday afternoon after she was evaluated by Dr. Merchant of Surgery who performed a Proctoscope in the office. The patient tells me she is scheduled for surgery with Dr. Merchant on of this week but she did not want to wait since she is now feeling very weak, out of breath, and generally run down. The patient says she feels like she did a year ago when she was admitted and had blood transfusions. - Related Data Allergies/Adverse Reactions: codeine Allergy (Verified 01/16/19 11:03) morphine Allergy (Verified 01/16/19 11:03) Home Medications: Oxycodone, Eszopiclone, Voltaren, Xanax Past Medical History - General Information source: Patient - Social History Smoking Status: Former Smoker Frequency of alcohol use: None Drug Abuse: None Family History: Reviewed & Not Pertinent Patient has homicidal ideation: No - Past Medical History Cardiac Medical History: Denies: Hx Coronary Artery Disease, Hx Heart Attack, Hx Hypertension Pulmonary Medical History: Reports: Hx COPD Denies: Hx Asthma, Hx Bronchitis, Hx Pneumonia Neurological Medical History: Denies: Hx Cerebrovascular Accident, Hx Seizures Endocrine Medical History: Reports: Hx Hypothyroidism Renal/ Medical History: Denies: Hx Peritoneal Dialysis Musculoskeletal Medical History: Reports Hx Arthritis - spinal osteoarthritis on chronic pain management with Percocet 10 mg QID Psychiatric Medical History: Reports: Hx Anxiety Past Surgical History: Reports: Hx Hysterectomy, Hx Orthopedic Surgery - L hip replacement, Hx Rectal Surgery - Distal rectal biopsy prior to cancer treatment in 2008. - Immunizations Hx Diphtheria, Pertussis, Tetanus Vaccination: No Hx Pneumococcal Vaccination: 02/25/15 Review of Systems - Review of Systems Constitutional: Weakness EENT: No symptoms reported Cardiovascular: No symptoms reported Respiratory: No symptoms reported Gastrointestinal: Rectal bleeding Genitourinary: No symptoms reported Female Genitourinary: No symptoms reported Musculoskeletal: No symptoms reported Skin: No symptoms reported Hematologic/Lymphatic: No symptoms reported Neurological/Psychological: No symptoms reported -: Yes All other systems reviewed and negative Physical Exam - Vital signs Vitals: Temp Pulse Resp BP Pulse Ox 97.7 F 120 H 20 117/71 97 11/11/19 11:53 11/11/19 11:53 11/11/19 11:53 11/11/19 11:53 11/11/19 11:53 - Notes Notes: GENERAL: Well-appearing, well-nourished and in no acute distress. HEAD: Atraumatic, normocephalic. EYES: Pupils equal round and reactive to light, extraocular movements intact, sclera anicteric, conjunctiva are normal. ENT: External ears normal, nares patent, oropharynx clear without exudates. Moist mucous membranes. NECK: Normal range of motion, supple without lymphadenopathy or JVD. LUNGS: Breath sounds clear to auscultation bilaterally and equal. No wheezes rales or rhonchi. HEART: Tachycardic, regular rhythm without murmurs, rubs or gallops. ABDOMEN: Soft, nontender, normoactive bowel sounds. No guarding, no rebound. No masses appreciated. EXTREMITIES: Normal range of motion, no pitting or edema. No clubbing or cyanosis. NEUROLOGICAL: Cranial nerves II through XII grossly intact. Normal speech, normal gait. PSYCH: Normal mood, normal affect. SKIN: Warm, Dry, normal turgor, no rashes or lesions noted. Course - Re-evaluation Re-evalutation: 11/11/19 15:52 The patient is here for off and on rectal bleeding for the last week. The patient saw Dr. Merchant of Surgery in the office yesterday and she is apparently scheduled for exploratory surgery this Thursday. The patient came to the ER since she is feeling weak, run down, and like she has in the past when she needed a blood transfusion. Dr. Khan of Surgery is fire control officer for Surgery and he recommended admission to the Medical Service and Dr. Merchant will then see the see the patient. Patient was given IV fluids in the ER and admitted for further treatment and care. - Vital Signs Vital signs: Temp Pulse Resp BP Pulse Ox 97.7 F 111 H 16 160/92 H 97 11/11/19 11:57 11/11/19 15:00 11/11/19 15:01 11/11/19 15:00 11/11/19 11:53 - Laboratory Result Diagrams: 11/11/19 12:44 11/11/19 12:44 Laboratory results interpreted by me: 11/11/19 11/11/19 12:44 12:44 RBC 2.92 L Hgb 8.2 L Hct 25.0 L RDW 14.8 H Sodium 135.0 L Potassium 3.5 L Discharge - Discharge Clinical Impression: Lower GI bleed Anemia Qualifiers: Anemia type: other cause Other causes of anemia: other cause, not classified Qualified Code(s): D64.89 - Other specified anemias Condition: Stable Disposition: ADMITTED INPATIENT Admitting Provider: Erwin (Hospitalist) Unit Admitted: Telemetry Referrals: YVETTE MERCHANT MD [Primary Care Provider] - Follow up as needed
[2019-11-11 16:22] LABS: APPEARANCE,URINE CLEAR; BILIRUBIN,URINE NEGATIVE (NEGATIVE); COLOR,URINE YELLOW; GLUCOSE, URINE NEGATIVE (NEGATIVE); KETONES,URINE 20 mg/dL (NEGATIVE); LEUKOCYTE ESTERASE,URINE NEGATIVE (NEGATIVE); NITRITE,URINE NEGATIVE (NEGATIVE); PROTEIN,URINE NEGATIVE (NEGATIVE); URINE SPECIFIC GRAVITY 1.011; UROBILINOGEN,URINE NEGATIVE mg/dL (<2.0)
[2019-11-11] MEDS ORDERED: ACETAMINOPHEN 325 MG TABLET PO PRN (16:54)
[2019-11-11] MEDS ORDERED: POTASSIUM CHLORIDE 10 MEQ TABLET.ER PO ONE (16:54)
[2019-11-11] MEDS ORDERED: LEVALBUTEROL HCL NEB 1.25 MG/3 ML AMPUL NEB PRN (16:54)
[2019-11-11] MEDS ORDERED: MAG HYDROX/AL HYDROX/SIMETH SUSP 30 ML UDCUP PO PRN (17:01)
[2019-11-11] MEDS ORDERED: ONDANSETRON HCL INJ/PF 4 MG/2 ML SDV IV PRN (17:01)
[2019-11-11] MEDS ORDERED: NORMAL SALINE 250 ML IV PRN ×2 (17:03)
[2019-11-11] MEDS ORDERED: NORMAL SALINE 1000 ML 500 ML IV PRN (17:11)
[2019-11-11] MEDS ORDERED: OXYCODONE-ACETAMINOPHEN 5-325 MG TABLET PO PRN (17:13)
[2019-11-11] MEDS ORDERED: ALPRAZOLAM 0.5 MG TABLET PO PRN (17:13)
--- NOTE | 2019-11-11 17:19 | PDOC H&P ---
History of Present Illness Admission Date/PCP: 11/11/19 15:57 YVETTE MERCHANT MD Patient complains of: Fatigue, hematochezia History of Present Illness: LAVELLE LINDER is a 79 year old female with history of anemia, colon cancer s/p chemoradiation currently in resection since 2008 per patient, diverticulosis, who presents to the hospital for evaluation of lower GI bleed. Patient has been having hematochezia off and on for the past several days. States she had episodes for about 3 days earlier last week as well as yesterday and the day before. She describes it as red blood with blood clots intermittently. She had several episodes yesterday but today she has not had any bowel movements and no hematochezia just yet. Yesterday she went to see Dr. Merchant who performed a proctoscopy on her and stated that he saw some bleeding coming from her rectum and scheduled her for lower endoscopy on this week. However she came to the hospital as she continued to feel very fatigued, short of breath when ambulating and lightheaded. Past Medical History Cardiac Medical History: Denies: Coronary Artery Disease, Myocardial Infarction, Hypertension Pulmonary Medical History: Reports: Chronic Obstructive Pulmonary Disease (COPD) Denies: Asthma, Bronchitis, Pneumonia Neurological Medical History: Denies: Seizures Endocrine Medical History: Reports: Hypothyroidism Musculoskeltal Medical History: Reports: Arthritis - spinal osteoarthritis on chronic pain management with Percocet 10 mg QID Hematology: Denies: Anemia Past Surgical History Past Surgical History: Reports: Hysterectomy, Orthopedic Surgery - L hip replacement Social History Smoking Status: Former Smoker Frequency of Alcohol Use: None Hx Recreational Drug Use: No - Advance Directive Resuscitation Status: Full Code Family History Family History: Hypertension Parental Family History Reviewed: Yes Children Family History Reviewed: Unknown Sibling(s) Family History Reviewed.: Unknown Medication/Allergy Home Medications: Eszopiclone [Lunesta] 3 mg PO QHS 01/17/19 Oxycodone HCl/Acetaminophen [Percocet 10-325 Mg Tablet] 1 each PO Q6HP PRN 01/17/19 Alprazolam [Xanax 0.5 mg Tablet] 0.5 mg PO DAILYP PRN 11/11/19 Diclofenac Sodium 100 gm TP QIDP PRN 11/11/19 Allergies/Adverse Reactions: codeine Allergy (Verified 01/16/19 11:03) morphine Allergy (Verified 01/16/19 11:03) Review of Systems Constitutional: PRESENT: fatigue Eyes: ABSENT: visual disturbances Nose, Mouth, and Throat: ABSENT: headache(s) Cardiovascular: ABSENT: chest pain Respiratory: PRESENT: dyspnea. ABSENT: sputum Gastrointestinal: ABSENT: abdominal pain, nausea, vomiting Genitourinary: ABSENT: hematuria Musculoskeletal: PRESENT: back pain Neurological: PRESENT: other - Lightheaded Psychiatric: ABSENT: anxiety Endocrine: PRESENT: cold intolerance Hematologic/Lymphatic: PRESENT: other - Anemia Physical Exam Vital Signs: Temp Pulse Resp BP Pulse Ox 97.7 F 118 H 22 H 147/79 H 98 11/11/19 11:57 11/11/19 16:54 11/11/19 16:47 11/11/19 16:54 11/11/19 16:43 Intake & Output 11/10/19 11/11/19 11/12/19 06:59 06:59 06:59 Intake Total 500 Balance 500 Weight 49.8 kg General appearance: PRESENT: no acute distress, cooperative Head exam: PRESENT: normocephalic Eye exam: PRESENT: conjunctiva pale Neck exam: ABSENT: JVD Respiratory exam: PRESENT: clear to auscultation zainab, unlabored. ABSENT: tachypnea, wheezes Cardiovascular exam: PRESENT: +S1, +S2, tachycardia GI/Abdominal exam: PRESENT: soft. ABSENT: rebound, rigid, tenderness Extremities exam: ABSENT: pedal edema, +1 edema, +2 edema Neurological exam: PRESENT: alert, awake, oriented to person, oriented to place, oriented to time Psychiatric exam: ABSENT: agitated, anxious Focused psych exam: ABSENT: pressured speech Skin exam: ABSENT: jaundice Results Laboratory Results: 11/11/19 12:44 11/11/19 12:44 11/11/19 11/11/19 11/11/19 12:44 12:44 12:44 WBC 4.8 RBC 2.92 L Hgb 8.2 L Hct 25.0 L MCV 86 MCH 28.1 MCHC 32.9 RDW 14.8 H Plt Count 238 Seg Neutrophils % 62.6 Sodium 135.0 L Potassium 3.5 L Chloride 100 Carbon Dioxide 29 Anion Gap 6 BUN 17 Creatinine 0.72 Est GFR ( Amer) > 60 Glucose 108 Calcium 9.2 Total Bilirubin 0.5 AST 23 Alkaline Phosphatase 61 Total Protein 6.3 Albumin 3.8 Urine Color Urine Appearance Urine pH Ur Specific [place] Urine Protein Urine Glucose (UA) Urine Ketones Urine Blood Urine Nitrite Ur Leukocyte Esterase Urine WBC (Auto) Urine RBC (Auto) Blood Type O POSITIVE Antibody Screen NEGATIVE 11/11/19 16:00 WBC RBC Hgb Hct MCV MCH MCHC RDW Plt Count Seg Neutrophils % Sodium Potassium Chloride Carbon Dioxide Anion Gap BUN Creatinine Est GFR ( Amer) Glucose Calcium Total Bilirubin AST Alkaline Phosphatase Total Protein Albumin Urine Color YELLOW Urine Appearance CLEAR Urine pH 5.0 Ur Specific [place] 1.011 Urine Protein NEGATIVE Urine Glucose (UA) NEGATIVE Urine Ketones 20 H Urine Blood SMALL H Urine Nitrite NEGATIVE Ur Leukocyte Esterase NEGATIVE Urine WBC (Auto) 2 Urine RBC (Auto) 1 Blood Type Antibody Screen Assessment and Plan - Diagnosis (1) Lower GI bleed Is this a current diagnosis for this admission?: Yes Plan: Characterized as hematochezia with blood clots. Patient is well-known to Dr. Merchant who apparently performed a proctoscopy in the office yesterday. Scheduled to go to the OR on . Surgery has been consulted. We will transfuse 1 unit of blood given bleeding. Tachycardic on presentation. Will administer IV fluids. Check orthostatics. Monitor in the IMCU. (2) Anemia due to blood loss Is this a current diagnosis for this admission?: Yes Plan: Patient seems to have symptomatic anemia. Hemoglobin of 8.2. Combined with persistent tachycardia and chronic bleeding, I have opted to transfuse 1 unit of PRBC. Type and screen performed. Patient is agreeable and actually requesting. (3) Tachycardia Is this a current diagnosis for this admission?: Yes Plan: Apparently, patient has history of tachycardia and has had some work-up in the past. However her tachycardia may be acutely exacerbated by her acute blood loss. Will monitor closely on cardiac monitoring. Repeat EKG. (4) COPD (chronic obstructive pulmonary disease) Is this a current diagnosis for this admission?: Yes Plan: Patient states she has been told that she has a touch of COPD. Uses inhalers at home. Will keep nebulizers available to be used as needed. - Time Time Spent with patient: 35 or more minutes
--- NOTE | 2019-11-11 19:55 | PDOC CONSULTATION ---
Consultation Consult Date: 11/11/19 Provider Consulted: RUTHIE PALUMBO Consult reason:: Evaluate rectal bleeding History of Present Illness Admission Date/PCP: 11/11/19 15:57 YVETTE MERCHANT MD Patient complains of: Blood per rectum History of Present Illness: LAVELLE LINDER is a 79 year old female with a remote history of what she states was rectal cancer which was treated only with chemoradiation and not surgery, who has noted over the past week multiple episodes of bright red blood per rectum along with passage of blood clots with each bowel movement. Patient was seen by Dr. Merchant yesterday and was noted with a distal rectal ulcer and is pending surgical intervention this . After her evaluation by Dr. Merchant patient noticed recurrent blood per rectum yesterday along with generalized weakness and presyncopal symptoms. The bleeding has stopped but she still felt very weak and she subsequently came in through the emergency room today. She has had no bleeding today. Past Medical History Cardiac Medical History: Denies: Coronary Artery Disease, Myocardial Infarction, Hypertension Pulmonary Medical History: Reports: Chronic Obstructive Pulmonary Disease (COPD) Denies: Asthma, Bronchitis, Pneumonia Neurological Medical History: Denies: Seizures Endocrine Medical History: Reports: Hypothyroidism Malignancy Medical History: Reports: Other - She states rectal cancer. Musculoskeltal Medical History: Reports: Arthritis - spinal osteoarthritis on chronic pain management with Percocet 10 mg QID Psychiatric Medical History: Denies: Depression Hematology: Denies: Anemia Past Surgical History Past Surgical History: Reports: Hysterectomy, Orthopedic Surgery - L hip replacement Social History Smoking Status: Former Smoker Frequency of Alcohol Use: None Hx Recreational Drug Use: No - Advance Directive Resuscitation Status: Full Code Family History Family History: Hypertension Parental Family History Reviewed: No Children Family History Reviewed: No Sibling(s) Family History Reviewed.: No Medication/Allergy Home Medications: Eszopiclone [Lunesta] 3 mg PO QHS 01/17/19 Oxycodone HCl/Acetaminophen [Percocet 10-325 Mg Tablet] 1 each PO Q6HP PRN 01/17/19 Alprazolam [Xanax 0.5 mg Tablet] 0.5 mg PO DAILYP PRN 11/11/19 Diclofenac Sodium 100 gm TP QIDP PRN 11/11/19 Allergies/Adverse Reactions: codeine Allergy (Verified 01/16/19 11:03) morphine Allergy (Verified 01/16/19 11:03) Physical Exam Vital Signs: Temp Pulse Resp BP Pulse Ox 98.0 F 84 17 162/79 H 100 11/11/19 17:39 11/11/19 17:39 11/11/19 17:39 11/11/19 17:39 11/11/19 17:39 Intake & Output 11/10/19 11/11/19 11/12/19 06:59 06:59 06:59 Intake Total 740 Balance 740 Weight 50.8 kg General appearance: PRESENT: no acute distress, cooperative Respiratory exam: PRESENT: clear to auscultation zainab Cardiovascular exam: PRESENT: RRR GI/Abdominal exam: PRESENT: other - Soft, Nondistended, nontender to palpation. Rectal exam: PRESENT: other - Patient refuses rectal exam. However on visual inspection external aspect of her anus, there is some dried blood in the perianal region with no obvious perianal masses. Neurological exam: PRESENT: alert, awake Psychiatric exam: PRESENT: appropriate affect Results Laboratory Results: 11/11/19 12:44 11/11/19 12:44 11/11/19 11/11/19 11/11/19 12:44 12:44 12:44 WBC 4.8 RBC 2.92 L Hgb 8.2 L Hct 25.0 L MCV 86 MCH 28.1 MCHC 32.9 RDW 14.8 H Plt Count 238 Seg Neutrophils % 62.6 Sodium 135.0 L Potassium 3.5 L Chloride 100 Carbon Dioxide 29 Anion Gap 6 BUN 17 Creatinine 0.72 Est GFR ( Amer) > 60 Glucose 108 Calcium 9.2 Total Bilirubin 0.5 AST 23 Alkaline Phosphatase 61 Total Protein 6.3 Albumin 3.8 Urine Color Urine Appearance Urine pH Ur Specific [place] Urine Protein Urine Glucose (UA) Urine Ketones Urine Blood Urine Nitrite Ur Leukocyte Esterase Urine WBC (Auto) Urine RBC (Auto) Blood Type O POSITIVE Antibody Screen NEGATIVE 11/11/19 16:00 WBC RBC Hgb Hct MCV MCH MCHC RDW Plt Count Seg Neutrophils % Sodium Potassium Chloride Carbon Dioxide Anion Gap BUN Creatinine Est GFR ( Amer) Glucose Calcium Total Bilirubin AST Alkaline Phosphatase Total Protein Albumin Urine Color YELLOW Urine Appearance CLEAR Urine pH 5.0 Ur Specific [place] 1.011 Urine Protein NEGATIVE Urine Glucose (UA) NEGATIVE Urine Ketones 20 H Urine Blood SMALL H Urine Nitrite NEGATIVE Ur Leukocyte Esterase NEGATIVE Urine WBC (Auto) 2 Urine RBC (Auto) 1 Blood Type Antibody Screen Assessment & Plan - Diagnosis (1) Lower GI bleed Is this a current diagnosis for this admission?: Yes Plan: Most likely related with her rectal ulcer. Pending surgical intervention with Dr. Merchant on . Pending transfusion for her sx anemia. Will discuss her case with Dr Trey garay am.
--- NOTE | 2019-11-11 20:07 | EKG REPORT ---
SEVERITY:- ABNORMAL ECG - SINUS TACHYCARDIA VENTRICULAR PREMATURE COMPLEX REPOL ABNRM SUGGESTS ISCHEMIA, DIFFUSE LEADS : Confirmed by: Tello Hyde MD 11-Nov-2019 20:06:09
[2019-11-11] MEDS: ZOLPIDEM TARTRATE 5 MG TABLET PO SCH (22:36)
[2019-11-12 05:01] LABS: HEMATOCRIT 25.5 % (36.0-47.0); HEMOGLOBIN 8.5 g/dL (12.0-15.5); MEAN CORPUSCULAR HEMOGLOBIN 28.1 pg (27.0-33.4); MEAN CORPUSCULAR HGB CONC 33.4 g/dL (32.0-36.0); MEAN CORPUSCULAR VOLUME 84 fl (80-97); PLATELET COUNT 179 10^3/uL (150-450); RED BLOOD COUNT 3.03 10^6/uL (3.72-5.28); RED CELL DISTRIBUTION WIDTH 14.8 % (11.5-14.0)
[2019-11-12 05:23] LABS: BLOOD UREA NITROGEN 15 mg/dL (7-20); CALCIUM 8.5 mg/dL (8.4-10.2); GLUCOSE 91 mg/dL (75-110)
[2019-11-12 05:28] LABS: CARBON DIOXIDE 29 mmol/L (22-30); CHLORIDE 105 mmol/L (98-107)
[2019-11-12 05:38] LABS: ANION GAP 3 (5-19)
--- NOTE | 2019-11-12 07:58 | PDOC PROGRESS REPORT ---
Subjective Progress Note for:: 11/12/19 Reason For Visit: LOWER GI BLEED Physical Exam Vital Signs: Temp Pulse Resp BP Pulse Ox 98.1 F 75 19 159/73 H 98 11/12/19 03:20 11/12/19 03:20 11/12/19 03:20 11/12/19 03:20 11/12/19 03:20 Intake & Output 11/11/19 11/12/19 11/13/19 06:59 06:59 06:59 Intake Total 1040 Balance 1040 Weight 53.6 kg General appearance: PRESENT: no acute distress Head exam: PRESENT: normocephalic Eye exam: PRESENT: EOMI Ear exam: PRESENT: normal external ear exam Mouth exam: PRESENT: moist Neck exam: PRESENT: full ROM Respiratory exam: PRESENT: clear to auscultation zainab Cardiovascular exam: PRESENT: RRR Pulses: PRESENT: normal radial pulses, normal femoral pulses Vascular exam: PRESENT: normal capillary refill Breast: PRESENT: Normal GI/Abdominal exam: PRESENT: soft Rectal exam: PRESENT: deferred Extremities exam: PRESENT: full ROM Musculoskeletal exam: PRESENT: full ROM Neurological exam: PRESENT: alert, awake, oriented to person, oriented to place Psychiatric exam: PRESENT: appropriate affect Skin exam: PRESENT: dry Results Laboratory Results: 11/12/19 04:54 11/12/19 04:54 11/11/19 11/11/19 11/11/19 12:44 12:44 12:44 WBC 4.8 RBC 2.92 L Hgb 8.2 L Hct 25.0 L MCV 86 MCH 28.1 MCHC 32.9 RDW 14.8 H Plt Count 238 Seg Neutrophils % 62.6 Sodium 135.0 L Potassium 3.5 L Chloride 100 Carbon Dioxide 29 Anion Gap 6 BUN 17 Creatinine 0.72 Est GFR ( Amer) > 60 Glucose 108 Calcium 9.2 Magnesium Total Bilirubin 0.5 AST 23 Alkaline Phosphatase 61 Total Protein 6.3 Albumin 3.8 Urine Color Urine Appearance Urine pH Ur Specific [place] Urine Protein Urine Glucose (UA) Urine Ketones Urine Blood Urine Nitrite Ur Leukocyte Esterase Urine WBC (Auto) Urine RBC (Auto) Blood Type O POSITIVE Antibody Screen NEGATIVE 11/11/19 11/12/19 11/12/19 16:00 04:54 04:54 WBC 4.0 RBC 3.03 L Hgb 8.5 L Hct 25.5 L MCV 84 MCH 28.1 MCHC 33.4 RDW 14.8 H Plt Count 179 Seg Neutrophils % Sodium 137.1 Potassium 3.0 L* Chloride 105 Carbon Dioxide 29 Anion Gap 3 L BUN 15 Creatinine 0.75 Est GFR ( Amer) > 60 Glucose 91 Calcium 8.5 Magnesium 2.1 Total Bilirubin AST Alkaline Phosphatase Total Protein Albumin Urine Color YELLOW Urine Appearance CLEAR Urine pH 5.0 Ur Specific [place] 1.011 Urine Protein NEGATIVE Urine Glucose (UA) NEGATIVE Urine Ketones 20 H Urine Blood SMALL H Urine Nitrite NEGATIVE Ur Leukocyte Esterase NEGATIVE Urine WBC (Auto) 2 Urine RBC (Auto) 1 Blood Type Antibody Screen Assessment & Plan - Plan Summary Plan Summary: pt feels better after tx scheduled for exam under anesthesia tomorow will cont clears tonight and npo after midnight mri of pelvis today/.
[2019-11-12] MEDS ORDERED: POTASSIUM CHLORIDE 10 MEQ TABLET.ER PO SCH (08:00)
[2019-11-12] MEDS ORDERED: DEXTROSE 40% GEL 15 GM TUBE PO PRN ×2 (08:16)
[2019-11-12] MEDS ORDERED: DEXTROSE 50%-WATER 25 GM/50 ML DISP.SYRIN IV PRN ×2 (08:16)
[2019-11-12] MEDS ORDERED: GLUCAGON,HUMAN RECOMB 1 MG INJ SUBCUT PRN (08:16)
--- NOTE | 2019-11-12 09:47 | EKG REPORT ---
SEVERITY:- ABNORMAL ECG - SINUS RHYTHM WITH PACS PROLONGED QT INTERVAL NONSPECIFIC ST-T CHANGES DIFFUSE. : Confirmed by: Tello Hyde MD 12-Nov-2019 09:46:03
--- NOTE | 2019-11-12 12:25 | PDOC PROGRESS REPORT ---
Subjective Progress Note for:: 11/12/19 Subjective:: This morning during encounter, patient states that she feels a lot better than she did previously. She states that she feels the transfusion really helped her. Had not had any bloody bowel movements but just informed by the nurse this afternoon the patient just had a bloody bowel movement after returning from MRI. Reason For Visit: LOWER GI BLEED Physical Exam Vital Signs: Temp Pulse Resp BP Pulse Ox 98.5 F 114 H 19 142/84 H 100 11/12/19 08:08 11/12/19 08:08 11/12/19 08:08 11/12/19 08:08 11/12/19 08:08 Intake & Output 11/11/19 11/12/19 11/13/19 06:59 06:59 06:59 Intake Total 1040 Balance 1040 Weight 53.6 kg 53.6 kg General appearance: PRESENT: no acute distress, cooperative Neck exam: ABSENT: JVD Respiratory exam: PRESENT: clear to auscultation zainab, symmetrical, unlabored. ABSENT: tachypnea Cardiovascular exam: ABSENT: bradycardia, irregular rhythm, tachycardia GI/Abdominal exam: ABSENT: distended Extremities exam: ABSENT: pedal edema Neurological exam: PRESENT: alert, awake Psychiatric exam: ABSENT: agitated, anxious Focused psych exam: ABSENT: pressured speech Skin exam: ABSENT: jaundice Results Laboratory Results: 11/12/19 04:54 11/12/19 04:54 11/11/19 11/11/19 11/11/19 12:44 12:44 12:44 WBC 4.8 RBC 2.92 L Hgb 8.2 L Hct 25.0 L MCV 86 MCH 28.1 MCHC 32.9 RDW 14.8 H Plt Count 238 Seg Neutrophils % 62.6 Sodium 135.0 L Potassium 3.5 L Chloride 100 Carbon Dioxide 29 Anion Gap 6 BUN 17 Creatinine 0.72 Est GFR ( Amer) > 60 Glucose 108 Calcium 9.2 Magnesium Total Bilirubin 0.5 AST 23 Alkaline Phosphatase 61 Total Protein 6.3 Albumin 3.8 Urine Color Urine Appearance Urine pH Ur Specific [place] Urine Protein Urine Glucose (UA) Urine Ketones Urine Blood Urine Nitrite Ur Leukocyte Esterase Urine WBC (Auto) Urine RBC (Auto) Blood Type O POSITIVE Antibody Screen NEGATIVE 11/11/19 11/12/19 11/12/19 16:00 04:54 04:54 WBC 4.0 RBC 3.03 L Hgb 8.5 L Hct 25.5 L MCV 84 MCH 28.1 MCHC 33.4 RDW 14.8 H Plt Count 179 Seg Neutrophils % Sodium 137.1 Potassium 3.0 L* Chloride 105 Carbon Dioxide 29 Anion Gap 3 L BUN 15 Creatinine 0.75 Est GFR ( Amer) > 60 Glucose 91 Calcium 8.5 Magnesium 2.1 Total Bilirubin AST Alkaline Phosphatase Total Protein Albumin Urine Color YELLOW Urine Appearance CLEAR Urine pH 5.0 Ur Specific [place] 1.011 Urine Protein NEGATIVE Urine Glucose (UA) NEGATIVE Urine Ketones 20 H Urine Blood SMALL H Urine Nitrite NEGATIVE Ur Leukocyte Esterase NEGATIVE Urine WBC (Auto) 2 Urine RBC (Auto) 1 Blood Type Antibody Screen Assessment and Plan - Diagnosis (1) Lower GI bleed Is this a current diagnosis for this admission?: Yes Plan: Characterized as hematochezia with blood clots. Patient is well-known to Dr. Yang who apparently performed a proctoscopy in the office yesterday. Scheduled to go to the OR on . Surgery has been consulted. We will transfuse 1 unit of blood given bleeding. Tachycardic on presentation. Will administer IV fluids. Check orthostatics. Monitor in the IMCU. 11/12/2019 Had another recurrence of bloody bowel movement this afternoon. Patient has been evaluated by surgery and Dr. Yang plans to take patient to the OR tomor row and has ordered for pelvic MRI which was just performed. Results are pending. Suspicion is that the lower GI bleed is from a rectal ulcer noted in the office. Clear liquids today. N.p.o. past midnight. We will check CBC at 4 PM today and transfuse if needed. Continue to monitor vital signs closely. (2) Anemia due to blood loss Is this a current diagnosis for this admission?: Yes Plan: Patient seems to have symptomatic anemia. Likely acute on chronic GI bleeding. Transfused 1 unit PRBC on 11/11/2019. Monitor CBC closely. (3) Tachycardia Is this a current diagnosis for this admission?: Yes Plan: Apparently, patient has history of tachycardia and has had some work-up in the past. However her tachycardia may be acutely exacerbated by her acute blood loss. Will monitor closely on cardiac monitoring. Repeat EKG. (4) COPD (chronic obstructive pulmonary disease) Is this a current diagnosis for this admission?: Yes Plan: Patient states she has been told that she has a touch of COPD. Uses inhalers at home. Will keep nebulizers available to be used as needed. - Time Time Spent with patient: Less than 15 minutes
[2019-11-12] MEDS: DOCUSATE SODIUM 100 MG CAPSULE PO SCH ×2 (14:31→19:37)
[2019-11-12] MEDS: POTASSIUM CHLORIDE 10 MEQ TABLET.ER PO SCH ×2 (14:31→19:36)
[2019-11-12 15:23] LABS: HEMATOCRIT 26.3 % (36.0-47.0); HEMOGLOBIN 8.7 g/dL (12.0-15.5); MEAN CORPUSCULAR HEMOGLOBIN 28.4 pg (27.0-33.4); MEAN CORPUSCULAR HGB CONC 33.2 g/dL (32.0-36.0); MEAN CORPUSCULAR VOLUME 86 fl (80-97); PLATELET COUNT 195 10^3/uL (150-450); RED BLOOD COUNT 3.07 10^6/uL (3.72-5.28); RED CELL DISTRIBUTION WIDTH 14.7 % (11.5-14.0); WHITE BLOOD COUNT 3.6 10^3/uL (4.0-10.5)
[2019-11-12] MEDS ORDERED: NORMAL SALINE 1000 ML 1,000 ML IV ONE (16:00)
--- NOTE | 2019-11-12 16:23 | Progress Note ---
Provider Note Provider Note: I was notified that this afternoon patient has had several episodes of bloody bowel movements. Also notified the patient was looking unwell. Went to bedside to evaluate patient. Patient was sitting on the commode with head on her lap resting almost against the bed. She appeared very fatigued and worn out and pr esyncopal. Stated that she felt dizzy and very much lightheaded. We got a patient of commode and put her on bed. The commode was full of nothing but bright red blood with barely any stool particles present. Blood pressure was 80s/50s with heart rate in the 130s. Placed patient on Trendelenburg position and administer 1 L normal saline bolus. Bolus was running, repeat vital signs showed improvement of her blood pressure with systolic bouncing back up to the 110s to 130 and heart rate going down to the 110s. H&H reviewed at 3 PM which showed hemoglobin of 8.7. However, I do not expect to see immediate drop in H&H especially as patient has been losing whole blood and as such it would take a while for this to show up on CBC. A/P: Severe lower GI bleed. Bleeding rectal ulcer. Hemodynamic instability with hypotension and tachycardia. History of colorectal cancer. I have discussed plan with interventional radiology as well as surgical lists Dr. Yang and Dr. Lantigua. We are unable to do IR embolization at this facility and in order to do this, patient will require a stat CT scan A/P and transferred to [facility] for IR embolization. However upon discussion this with Surgicalists, I was informed that the site of her bleeding is very low in the rectum and accessible and could be slowed down with rectal packing to help tamponade the bleeding ulcer with plans for surgery at 7 AM tomorrow to resect the lesion. Discussed that IR embolization would not be needed. We will hold off on doing that. Discussed with patient to is agreeable to rectal packing and have notified surgery. We will empirically transfuse another 2 units of PRBCs and keep a very close eye on patient through the night. Keep n.p.o. for now. Hypotension seems to be resolving with simply initiating fluids but if it should worsen despite fluids and blood transfusion as well rectal packing, low threshold to upgrade to the ICU. 35mins critical care time.
--- NOTE | 2019-11-12 17:06 | RADIOLOGY REPORT (SQ) ---
EXAM DESCRIPTION: MRI PELVIS COMBO IMAGES COMPLETED DATE/TIME: 11/12/2019 11:26 am REASON FOR STUDY: hx of rectal cancer. COMPARISON: Barium enema 01/17/2019 TECHNIQUE: Multiplanar multisequence imaging performed without and with contrast including axial, sa gittal and coronal T2, axial T, axial gradient fat sat T1, axial, sagittal and coronal fat sat T2 pos t contrast. CONTRAST TYPE AND DOSE: 10 mL Dotarem. RENAL FUNCTION: GFR > 60. LIMITATIONS: None. FINDINGS: BLADDER AND URETHRA: No focal bladder wall thickening or nodularity. Smooth mucosa. The urethra has smooth contour with no focal asymmetry. No abnormal enhancement. No focal lesions. PELVIC SOFT TISSUES: Normal. No masses. UTERUS: Surgically absent RIGHT OVARY: Not identified LEFT OVARY: Not identified FREE FLUID: None. PELVIC SKELETAL STRUCTURES: Left total hip replacement EXTRA PELVIS SOFT TISSUES: No masses. OTHER: Patient has a history of anal/rectal malignancy. No enhancing masses along the anus or rectum are identified on today's scan. There are few sigmoid diverticuli in the distal colon. No MR evide nce of acute diverticulitis. IMPRESSION: No recurrent anal or rectal mass identified TECHNICAL DOCUMENTATION: JOB ID: [id number] [employer]- All Rights Reserved Reading location - IP/workstation name: [email or web address]
[2019-11-12] MEDS: ZOLPIDEM TARTRATE 5 MG TABLET PO SCH (22:25)
[2019-11-13 06:44] LABS: HEMATOCRIT 31.9 % (36.0-47.0); MEAN CORPUSCULAR HEMOGLOBIN 29.2 pg (27.0-33.4); MEAN CORPUSCULAR VOLUME 86 fl (80-97); PLATELET COUNT 155 10^3/uL (150-450); RED BLOOD COUNT 3.71 10^6/uL (3.72-5.28); RED CELL DISTRIBUTION WIDTH 14.3 % (11.5-14.0); WHITE BLOOD COUNT 4.9 10^3/uL (4.0-10.5)
[2019-11-13 06:45] LABS: HEMOGLOBIN 10.8 g/dL (12.0-15.5)
[2019-11-13 06:46] LABS: INTERNATIONAL RATION (INR) 1.12; PROTHROMBIN TIME 14.4 SEC (11.4-15.4)
[2019-11-13 07:01] LABS: ANION GAP 5 (5-19); BLOOD UREA NITROGEN 8 mg/dL (7-20); CALCIUM 8.4 mg/dL (8.4-10.2); CARBON DIOXIDE 24 mmol/L (22-30); CHLORIDE 106 mmol/L (98-107); GLUCOSE 72 mg/dL (75-110); POTASSIUM 3.1 mmol/L (3.6-5.0)
[2019-11-13] MEDS ORDERED: FENTANYL CITRATE INJ/PF 100 MCG/2 ML AMPUL IV PRN ×3 (08:20)
[2019-11-13] MEDS ORDERED: ONDANSETRON HCL INJ/PF 4 MG/2 ML SDV IV PRN (08:20)
[2019-11-13] MEDS ORDERED: PROMETHAZINE HCL INJ 25 MG/1 ML VIAL IV PRN (08:20)
[2019-11-13] MEDS ORDERED: BUPIVACAINE INJ/PF LIPOSOME/PF 266 MG/20 ML SDV INJ ONE (09:05)
[2019-11-13] MEDS: DOCUSATE SODIUM 100 MG CAPSULE PO SCH ×2 (09:15→17:45)
--- NOTE | 2019-11-13 11:11 | Operative Report ---
Nonrecallable Operative Report DATE OF SURGERY: 11/13/19 PREOPERATIVE DIAGNOSIS: Rectal bleeding POSTOPERATIVE DIAGNOSIS: Rectal bleeding OPERATION: Exam under anesthesia, rectal biopsies, flexible sigmoidoscopy,. SURGEON: YVETTE MERCHANT 1ST HARNESS RIGGER: LAUREN BARNES ANESTHESIA: GA TISSUE REMOVED OR ALTERED: Rectal biopsies COMPLICATIONS: None ESTIMATED BLOOD LOSS: 50 cc PROCEDURE: This procedure patient was brought to the operating room awake and alert in stable condition placed in the operative supine position induced under general anesthesia and intubated After appropriate timeout and site verification the procedure commenced Digital rectal examination reveals a very tight rectal sphincter unable to really pass more than the tip of my index finger into her rectum. This was slowly dilated with digital dilatation to allow me to pass to fingers into the rectum. There was some tearing of the perirectal skin. Once we are able do this was able to pass anoscope into the rectum. Visualization revealed circumferential pale mucosa with circumferential ulcerations that were bled upon touching. There was some firm tissue at the 5 o'clock position approximately 2 fingerbreadths above the anal verge that appeared to be ulcerated and consistent with either a stercoral ulcer or recurrent cancer and this was biopsied. This was removed I then attempted to pass the rigid proctoscope into the rectum however because of the firmness of the rectum itself is unable to make the prop er returns to pass the scope up into the sigmoid colon. Therefore this was removed. I then used the flexible sigmoidoscope and passed it into the rectum and is able to admit manipulated up into the distal sigmoid colon for approximately 40 cm. There were multiple diverticuli. There is no evidence of any bleeding coming from the diverticuli however after about 40 cm there is a large amount of stool thick that made our ability to pass the scope further impossible. Therefore the scope was removed. As we removed the scope we noted the circumferential ulcers of the distal rectum rectum that were oozing. We again noted that the rectum itself was markedly inflamed there were circumferential ulcers a large 1 at the 11 o'clock position that was bleeding fairly profusely this was packed with a Xeroform pack and then the entire rectum was packed with Gelfoam. A sterile gauze was placed on the Gelfoam to aid in pressure up against the rectal wall in hopes of obtaining good hemostasis. The Gelfoam was left in place as was the gauze which will be removed tomorrow. This completed the procedure the patient was awakened in the operating room extubated transferred recovery in stable condition Lauren Chand was present for the entire case for help with wound retraction manipulation of the scope.
[2019-11-13] MEDS ORDERED: ONDANSETRON HCL INJ/PF 4 MG/2 ML SDV ONE (12:13)
[2019-11-13] MEDS ORDERED: PHENYLEPHRINE HCL INJ/PF 10 MG/1 ML SDV ONE (12:13)
[2019-11-13] MEDS ORDERED: DEXAMETHASONE SOD PHOSPHATE INJ 4 MG/1 ML VIAL ONE (12:13)
[2019-11-13] MEDS: POTASSI CL 20 MEQ/50 ML RIDER 20 MEQ/50 ML RTUPB IV SCH (13:25)
[2019-11-13] MEDS: POTASSIUM CHLORIDE 20 MEQ/50 ML RTU IV SCH ×2 (13:29→17:52)
--- NOTE | 2019-11-13 16:30 | PDOC PROGRESS REPORT ---
Subjective Progress Note for:: 11/13/19 Subjective:: Patient feels well today. Feels a little gas in her stomach. Denies any abdominal pain after procedure. Discussed with her about the findings of her procedure today. She expressed concerns about having a rebleed when she has bowel movement which is given her concerns about eating. Reason For Visit: LOWER GI BLEED Physical Exam Vital Signs: Temp Pulse Resp BP Pulse Ox 97.2 F 70 15 123/64 97 11/13/19 11:43 11/13/19 14:00 11/13/19 11:43 11/13/19 11:43 11/13/19 11:43 Intake & Output 11/12/19 11/13/19 11/14/19 06:59 06:59 06:59 Intake Total 9565 616 2300 Output Total 575 430 Balance 1040 -125 670 Weight 53.6 kg 53.1 kg General appearance: PRESENT: no acute distress, cooperative Neck exam: ABSENT: JVD Respiratory exam: PRESENT: symmetrical, unlabored. ABSENT: accessory muscle use, retraction, tachypnea Cardiovascular exam: PRESENT: RRR. ABSENT: bradycardia, irregular rhythm, tachycardia GI/Abdominal exam: PRESENT: soft. ABSENT: distended, firm, rebound, rigid, tenderness Neurological exam: PRESENT: alert, awake, oriented to person, oriented to place, oriented to time, oriented to situation Results Laboratory Results: 11/13/19 06:19 11/13/19 06:19 11/11/19 11/13/19 11/13/19 12:44 06:19 06:19 WBC 4.9 RBC 3.71 L Hgb 10.8 L D Hct 31.9 L MCV 86 MCH 29.2 MCHC 34.0 RDW 14.3 H Plt Count 155 Sodium 135.3 L Potassium 3.1 L Chloride 106 Carbon Dioxide 24 Anion Gap 5 BUN 8 Creatinine 0.59 Est GFR ( Amer) > 60 Glucose 72 L Calcium 8.4 Magnesium 2.0 Blood Type O POSITIVE Antibody Screen NEGATIVE Impressions: Pelvis MRI 11/12/19 00:00 IMPRESSION: No recurrent anal or rectal mass identified Assessment and Plan - Diagnosis (1) Lower GI bleed Is this a current diagnosis for this admission?: Yes Plan: Characterized as hematochezia with blood clots. Patient is well-known to Dr. Yang who apparently performed a proctoscopy in the office yesterday. Scheduled to go to the OR on . Surgery has been consulted. We will transfuse 1 unit of blood given bleeding. Tachycardic on presentation. Will administer IV fluids. Check orthostatics. Monitor in the IMCU. 11/12/2019 Had another recurrence of bloody bowel movement this afternoon. Patient has been evaluated by surgery and Dr. Yang plans to take patient to the OR eva orrow and has ordered for pelvic MRI which was just performed. Results are pending. Suspicion is that the lower GI bleed is from a rectal ulcer noted in the office. Clear liquids today. N.p.o. past midnight. We will check CBC at 4 PM today and transfuse if needed. Continue to monitor vital signs closely. 11/13/2019 Patient underwent a flexible sigmoidoscopy today which revealed actively bleedin g large rectal ulcerations suspicious for stercoral ulcer or recurrent cancer with biopsies performed. Rectal stricture was also noted. Gelfoam was applied with gauze for rectal packing with plans to remove that tomorrow. Discussed with Dr. Yang who informs me that patient will need an abdominal peritoneal resection with colostomy in order to completely stop the bleeding. I have discussed this with patient as well who states that she figured that he might come to that. Continue to monitor patient's H&H and vital signs closely in the hospital. (2) Anemia due to blood loss Is this a current diagnosis for this admission?: Yes Plan: Secondary to rectal bleeding. Transfused 3 units of PRBCs so far. Hemoglobin this morning was 10. Continue to monitor. Symptoms seem to have improved. (3) Tachycardia Is this a current diagnosis for this admission?: Yes Plan: Apparently, patient has history of tachycardia and has had some work-up in the past. However her tachycardia may be acutely exacerbated by her acute blood loss. Will monitor closely on cardiac monitoring. Seems to have improved today. (4) COPD (chronic obstructive pulmonary disease) Is this a current diagnosis for this admission?: Yes Plan: Patient states she has been told that she has a touch of COPD. Uses inhalers at home. Will keep nebulizers available to be used as needed. - Time Time Spent with patient: Less than 15 minutes
[2019-11-13] MEDS: ZOLPIDEM TARTRATE 5 MG TABLET PO SCH (22:21)
[2019-11-14 06:04] LABS: HEMATOCRIT 30.2 % (36.0-47.0); HEMOGLOBIN 10.2 g/dL (12.0-15.5); MEAN CORPUSCULAR HEMOGLOBIN 29.1 pg (27.0-33.4); MEAN CORPUSCULAR HGB CONC 33.7 g/dL (32.0-36.0); MEAN CORPUSCULAR VOLUME 86 fl (80-97); PLATELET COUNT 162 10^3/uL (150-450); RED CELL DISTRIBUTION WIDTH 14.3 % (11.5-14.0); WHITE BLOOD COUNT 9.6 10^3/uL (4.0-10.5)
[2019-11-14 06:29] LABS: ANION GAP 5 (5-19); BLOOD UREA NITROGEN 9 mg/dL (7-20); CALCIUM 8.4 mg/dL (8.4-10.2); CARBON DIOXIDE 25 mmol/L (22-30); CHLORIDE 104 mmol/L (98-107); GLUCOSE 82 mg/dL (75-110); POTASSIUM 3.3 mmol/L (3.6-5.0)
--- NOTE | 2019-11-14 07:46 | PDOC PROGRESS REPORT ---
Subjective Progress Note for:: 11/14/19 Subjective:: c/o lower abd pressure and rectal pain wants to eat Reason For Visit: LOWER GI BLEED Physical Exam Vital Signs: Temp Pulse Resp BP Pulse Ox 98.6 F 75 16 136/61 H 97 11/14/19 03:23 11/14/19 03:23 11/14/19 03:23 11/14/19 03:23 11/14/19 03:23 Intake & Output 11/13/19 11/14/19 11/15/19 06:59 06:59 06:59 Intake Total 450 1611 Output Total 575 1130 Balance -125 481 Weight 53.1 kg 53 kg General appearance: PRESENT: mild distress Head exam: PRESENT: normocephalic Eye exam: PRESENT: EOMI Mouth exam: PRESENT: dry mucosa Throat exam: PRESENT: post pharyngeal erythema Neck exam: PRESENT: full ROM Respiratory exam: PRESENT: clear to auscultation zainab Cardiovascular exam: PRESENT: RRR Pulses: PRESENT: normal radial pulses, normal femoral pulses Breast: PRESENT: Normal GI/Abdominal exam: PRESENT: soft Rectal exam: PRESENT: other - pack remove no bleeding Extremities exam: PRESENT: full ROM Musculoskeletal exam: PRESENT: ambulatory, full ROM Neurological exam: PRESENT: alert, awake, oriented to person, oriented to place Psychiatric exam: PRESENT: appropriate affect Skin exam: PRESENT: dry Results Laboratory Results: 11/14/19 05:16 11/14/19 05:16 11/14/19 11/14/19 05:16 05:16 WBC 9.6 RBC 3.50 L Hgb 10.2 L Hct 30.2 L MCV 86 MCH 29.1 MCHC 33.7 RDW 14.3 H Plt Count 162 Sodium 134.4 L Potassium 3.3 L Chloride 104 Carbon Dioxide 25 Anion Gap 5 BUN 9 Creatinine 0.64 Est GFR ( Amer) > 60 Glucose 82 Calcium 8.4 Magnesium 1.9 Impressions: Pelvis MRI 11/12/19 00:00 IMPRESSION: No recurrent anal or rectal mass identified Assessment & Plan - Plan Summary Plan Summary: s/p eua and rectal biopsy doing ok today c/o rectal pressure passed small amts of flatus wants to eat plan await rectal bx ok to start diet pt consideriing apr will cont to follow.
[2019-11-14] MEDS: POTASSIUM CHLORIDE 10 MEQ TABLET.ER PO SCH ×2 (10:24→17:54)
[2019-11-14] MEDS: DOCUSATE SODIUM 100 MG CAPSULE PO SCH ×2 (10:24→17:54)
--- NOTE | 2019-11-14 15:46 | PDOC PROGRESS REPORT ---
Subjective Progress Note for:: 11/14/19 Subjective:: Patient feels well today. She had the rectal packing removed by Dr. Yang yesterday morning. States that she is agreeable with surgery during this hospitalization as she is worried about going home without the bleeding being resolved. Otherwise feels well. Reason For Visit: LOWER GI BLEED Physical Exam Vital Signs: Temp Pulse Resp BP Pulse Ox 98.6 F 113 H 16 136/73 H 97 11/14/19 11:37 11/14/19 11:37 11/14/19 11:37 11/14/19 11:37 11/14/19 11:37 Intake & Output 11/13/19 11/14/19 11/15/19 06:59 06:59 06:59 Intake Total 450 1611 360 Output Total 575 1130 625 Balance -125 481 -265 Weight 53.1 kg 53 kg General appearance: PRESENT: no acute distress, cooperative, thin. ABSENT: mild distress, morbidly obese Neck exam: ABSENT: JVD Respiratory exam: PRESENT: symmetrical, unlabored. ABSENT: accessory muscle use, retraction, tachypnea GI/Abdominal exam: PRESENT: soft. ABSENT: distended, firm, guarding, rebound, rigid, tenderness Neurological exam: PRESENT: alert, awake, oriented to person, oriented to place, oriented to time Psychiatric exam: ABSENT: agitated, anxious Focused psych exam: ABSENT: pressured speech Results Laboratory Results: 11/14/19 05:16 11/14/19 05:16 11/14/19 11/14/19 05:16 05:16 WBC 9.6 RBC 3.50 L Hgb 10.2 L Hct 30.2 L MCV 86 MCH 29.1 MCHC 33.7 RDW 14.3 H Plt Count 162 Sodium 134.4 L Potassium 3.3 L Chloride 104 Carbon Dioxide 25 Anion Gap 5 BUN 9 Creatinine 0.64 Est GFR ( Amer) > 60 Glucose 82 Calcium 8.4 Magnesium 1.9 Impressions: Pelvis MRI 11/12/19 00:00 IMPRESSION: No recurrent anal or rectal mass identified Assessment and Plan - Diagnosis (1) Lower GI bleed Is this a current diagnosis for this admission?: Yes Plan: Characterized as hematochezia with blood clots. Patient is well-known to Dr. Yang who apparently performed a proctoscopy in the office yesterday. Scheduled to go to the OR on . Surgery has been consulted. We will transfuse 1 unit of blood given bleeding. Tachycardic on presentation. Will administer IV fluids. Check orthostatics. Monitor in the IMCU. 11/12/2019 Had another recurrence of bloody bowel movement this afternoon. Patient has been evaluated by surgery and Dr. Yang plans to take patient to the OR tomorrow and has ordered for pelvic MRI which was just performed. Results are pending. Suspicion is that the lower GI bleed is from a rectal ulcer noted in the office. Clear liquids today. N.p.o. past midnight. We will check CBC at 4 PM today and transfuse if needed. Continue to monitor vital signs closely. 11/13/2019 Patient underwent a flexible sigmoidoscopy today which revealed actively bleeding large rectal ulcerations suspicious for stercoral ulcer or recurrent cancer with biopsies performed. Rectal stricture was also noted. Gelfoam was applied with gauze for rectal packing with plans to remove that tomorrow. Discussed with Dr. Yang who informs me that patient will need an abdominal peritoneal resection with colostomy in order to completely stop the bleeding. I have discussed this with patient as well who states that she figured that he might come to that. Continue to monitor patient's H&H and vital signs closely in the hospital. 11/14/2019 Patient's rectal packing was removed today. Patient has not had a bloody bowel movement at the time of my encounter this morning. Due to patient's large rectal bleeding with hemodynamic instability 2 days ago, I think it would be in patient's best interest for patient safety for patient to stay in the hospital until the APR surgery is performed. Patient is currently hemodynamically stable and doing well. H&H is holding steady. We will continue to monitor H&H. Currently Dr. Yang is awaiting biopsy result before proceeding with procedure. Diet advanced. (2) Anemia due to blood loss Is this a current diagnosis for this admission?: Yes Plan: Secondary to rectal bleeding. Transfused 3 units of PRBCs so far. Hemoglobin this morning was 10.2. We will continue to monitor CBC. (3) Tachycardia Is this a current diagnosis for this admission?: Yes Plan: Apparently, patient has history of chronic sinus tachycardia and has had some wo rk-up in the past. However her tachycardia may be acutely exacerbated by her acute blood loss. Will monitor closely on cardiac monitoring. (4) COPD (chronic obstructive pulmonary disease) Is this a current diagnosis for this admission?: Yes Plan: Patient states she has been told that she has a touch of COPD. Uses inhalers at home. Will keep nebulizers available to be used as needed. - Time Time Spent with patient: Less than 15 minutes
[2019-11-14] MEDS: ZOLPIDEM TARTRATE 5 MG TABLET PO SCH (21:28)
[2019-11-15 05:58] LABS: HEMATOCRIT 28.9 % (36.0-47.0); HEMOGLOBIN 9.8 g/dL (12.0-15.5); MEAN CORPUSCULAR HEMOGLOBIN 29.2 pg (27.0-33.4); MEAN CORPUSCULAR HGB CONC 34.1 g/dL (32.0-36.0); MEAN CORPUSCULAR VOLUME 86 fl (80-97); PLATELET COUNT 161 10^3/uL (150-450); RED BLOOD COUNT 3.37 10^6/uL (3.72-5.28); RED CELL DISTRIBUTION WIDTH 14.6 % (11.5-14.0); WHITE BLOOD COUNT 6.9 10^3/uL (4.0-10.5)
[2019-11-15 06:19] LABS: BLOOD UREA NITROGEN 8 mg/dL (7-20); CALCIUM 8.2 mg/dL (8.4-10.2); CARBON DIOXIDE 27 mmol/L (22-30); CHLORIDE 104 mmol/L (98-107); GLUCOSE 88 mg/dL (75-110)
[2019-11-15 06:28] LABS: ANION GAP 4 (5-19)
[2019-11-15] MEDS: DOCUSATE SODIUM 100 MG CAPSULE PO SCH (10:36)
--- NOTE | 2019-11-15 12:19 | PDOC DISCHARGE SUMMARY ---
Impression - Admit/DC Date/PCP Admission Date/Primary Care Provider: 11/11/19 15:57 YVETTE MERCHANT MD Discharge Date: 11/15/19 - Discharge Diagnosis (1) Lower GI bleed Is this a current diagnosis for this admission?: Yes (2) Acute hemorrhagic ulcer of rectum Is this a current diagnosis for this admission?: Yes (3) Anemia due to blood loss Is this a current diagnosis for this admission?: Yes (4) Tachycardia Is this a current diagnosis for this admission?: Yes (5) COPD (chronic obstructive pulmonary disease) Is this a current diagnosis for this admission?: Yes - Additional Information Resuscitation Status: Full Code Discharge Diet: As Tolerated Discharge Activity: Activity As Tolerated Referrals: YVETTE MERCHANT MD [Primary Care Provider] - Follow up as needed Home Medications: Eszopiclone [Lunesta] 3 mg PO QHS 01/17/19 Oxycodone HCl/Acetaminophen [Percocet 10-325 mg Tablet] 1 each PO Q6HP PRN 01/17/19 Alprazolam [Xanax 0.5 mg Tablet] 0.5 mg PO DAILYP PRN 11/11/19 Diclofenac Sodium 100 gm TP QIDP PRN 11/11/19 History of Present Illiness History of Present Illness: LAVELLE LINDER is a 79 year old female with history of anemia, colon cancer s/p chemoradiation currently in resection since 2008 per patient, diverticulosis, who presents to the hospital for evaluation of lower GI bleed. Patient has been having hematochezia off and on for the past several days. States she had episodes for about 3 days earlier last week as well as yesterday and the day before. She describes it as red blood with blood clots intermittently. She had several episodes yesterday but today she has not had any bowel movements and no hematochezia just yet. Yesterday she went to see Dr. Merchant who performed a proctoscopy on her and stated that he saw some bleeding coming from her rectum and scheduled her for lower endoscopy on this week. However she came to the hospital as she continued to feel very fatigued, short of breath when ambulating and lightheaded. Hospital Course Hospital Course: Patient presented with symptomatic anemia characterized by lightheadedness, and significant fatigue as well as chills. Hemoglobin was 8.2 at the time. Patient had been having significant rectal bleeding. She was transfused blood products while in the hospital. Hemoglobin improved to 10. Patient did experience an episode of hemodynamic instability with hypotension and dizziness after having several large bouts of hematochezia. She had rectal packing performed given suspicion of rectal ulcer from outpatient proctoscopy. She was taken to the endoscopy suite and underwent a flexible sigmoidoscopy by Dr. Merchant which revealed large rectal ulcers with active bleeding. Gelfoam was applied and rectal packing was done to help tamponade the bleed. Biopsy taken resulted and does not show any evidence of malignancy. 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 Dr. Merchant has explained to patient that the only way to definitely resolved this bleeding is by doing an abdominal peritoneal resection with end colostomy which he will be scheduling for outpatient. In the meantime, patient has had a bowel movement and has not had any bleeding since the sigmoidoscopy. Patient is agreeable to the plan and Dr. Merchant has called in steroid suppository to her pharmacy which her daughter will milk pickup driver. Patient is in good stable condition now and has been advised to return to the hospital if she starts to become very symptomatic again. Physical Exam Vital Signs: Temp Pulse Resp BP Pulse Ox 98.2 F 75 16 119/65 98 11/15/19 09:00 11/15/19 09:00 11/15/19 09:00 11/15/19 09:00 11/15/19 09:00 Intake & Output 11/14/19 11/15/19 11/16/19 06:59 06:59 06:59 Intake Total 1611 1192 Output Total 1130 1600 Balance 481 -408 Weight 53 kg 51.7 kg General appearance: PRESENT: no acute distress, cooperative Respiratory exam: PRESENT: unlabored Vascular exam: ABSENT: pallor Neurological exam: PRESENT: alert, awake, oriented to person, oriented to place, oriented to time Results Laboratory Results: WBC 6.9 10^3/uL (4.0-10.5) 11/15/19 05:11 RBC 3.37 10^6/uL (3.72-5.28) L 11/15/19 05:11 Hgb 9.8 g/dL (12.0-15.5) L 11/15/19 05:11 Hct 28.9 % (36.0-47.0) L 11/15/19 05:11 MCV 86 fl (80-97) 11/15/19 05:11 MCH 29.2 pg (27.0-33.4) 11/15/19 05:11 MCHC 34.1 g/dL (32.0-36.0) 11/15/19 05:11 RDW 14.6 % (11.5-14.0) H 11/15/19 05:11 Plt Count 161 10^3/uL (150-450) 11/15/19 05:11 Lymph % (Auto) 29.0 % (13-45) 11/11/19 12:44 [place] % (Auto) 6.8 % (3-13) 11/11/19 12:44 Eos % (Auto) 0.2 % (0-6) 11/11/19 12:44 Baso % (Auto) 1.4 % (0-2) 11/11/19 12:44 Absolute Neuts (auto) 3.0 10^3/uL (1.7-8.2) 11/11/19 12:44 Absolute Lymphs (auto) 1.4 10^3/uL (0.5-4.7) 11/11/19 12:44 Absolute Monos (auto) 0.3 10^3/uL (0.1-1.4) 11/11/19 12:44 Absolute Eos (auto) 0.0 10^3/uL (0.0-0.6) 11/11/19 12:44 Absolute Basos (auto) 0.1 10^3/uL (0.0-0.2) 11/11/19 12:44 Seg Neutrophils % 62.6 % (42-78) 11/11/19 12:44 PT 14.4 SEC (11.4-15.4) 11/13/19 06:19 INR 1.12 11/13/19 06:19 Sodium 134.9 mmol/L (137-145) L 11/15/19 05:11 Potassium 4.0 mmol/L (3.6-5.0) 11/15/19 05:11 Chloride 104 mmol/L (98-107) 11/15/19 05:11 Carbon Dioxide 27 mmol/L (22-30) 11/15/19 05:11 Anion Gap 4 (5-19) L 11/15/19 05:11 BUN 8 mg/dL (7-20) 11/15/19 05:11 Creatinine 0.59 mg/dL (0.52-1.25) 11/15/19 05:11 Est GFR ( Amer) > 60 (>60) 11/15/19 05:11 Est GFR (MDRD) Non-Af > 60 (>60) 11/15/19 05:11 Glucose 88 mg/dL (75-110) 11/15/19 05:11 Calcium 8.2 mg/dL (8.4-10.2) L 11/15/19 05:11 Magnesium 1.9 mg/dL (1.6-2.3) 11/14/19 05:16 Total Bilirubin 0.5 mg/dL (0.2-1.3) 11/11/19 12:44 Direct Bilirubin 0.0 mg/dL (0.0-0.4) 11/11/19 12:44 Neonat Total Bilirubin Not Reportable 11/11/19 12:44 Neonat Direct Bilirubin Not Reportable 11/11/19 12:44 Neonat Indirect Bili Not Reportable 11/11/19 12:44 AST 23 U/L (14-36) 11/11/19 12:44 ALT 11 U/L (<35) 11/11/19 12:44 Alkaline Phosphatase 61 U/L (38-126) 11/11/19 12:44 Total Protein 6.3 g/dL (6.3-8.2) 11/11/19 12:44 Albumin 3.8 g/dL (3.5-5.0) 11/11/19 12:44 Urine Color YELLOW 11/11/19 16:00 Urine Appearance CLEAR 11/11/19 16:00 Urine pH 5.0 (5.0-9.0) 11/11/19 16:00 Ur Specific [place] 1.011 11/11/19 16:00 Urine Protein NEGATIVE mg/dL (NEGATIVE) 11/11/19 16:00 Urine Glucose (UA) NEGATIVE mg/dL (NEGATIVE) 11/11/19 16:00 Urine Ketones 20 mg/dL (NEGATIVE) H 11/11/19 16:00 Urine Blood SMALL (NEGATIVE) H 11/11/19 16:00 Urine Nitrite NEGATIVE (NEGATIVE) 11/11/19 16:00 Urine Bilirubin NEGATIVE (NEGATIVE) 11/11/19 16:00 Urine Urobilinogen NEGATIVE mg/dL (<2.0) 11/11/19 16:00 Ur Leukocyte Esterase NEGATIVE (NEGATIVE) 11/11/19 16:00 Urine WBC (Auto) 2 /HPF 11/11/19 16:00 Urine RBC (Auto) 1 /HPF 11/11/19 16:00 Squamous Epi Cells Auto 1 /HPF 11/11/19 16:00 Urine Mucus (Auto) FEW /LPF 11/11/19 16:00 Urine Ascorbic Acid NEGATIVE (NEGATIVE) 11/11/19 16:00 SARS-CoV-2 (PCR) NEGATIVE (NEGATIVE) 11/12/19 15:15 Blood Type O POSITIVE 11/11/19 12:44 Blood Type Confirm O POSITIVE 11/11/19 12:44 Antibody Screen NEGATIVE 11/11/19 12:44 Crossmatch See Detail 11/11/19 12:44 Impressions: Pelvis MRI 11/12/19 00:00 IMPRESSION: No recurrent anal or rectal mass identified Plan Time Spent: Less than 30 Minutes Stroke Is this a Stroke Patient?: No Acute Heart Failure - Is this a Heart Failure Patient?: No
[2019-11-15 13:01] VITALS: BP 148/70
== END 2019-11-15 13:30 | disposition home or self-care (01) | DRG 394 ==
LOC: ER 11:42 → EH 15:57 → 4N 17:37 → 3W 18:33 → 3S 23:33 → 3W 11-12 17:20
PROVIDERS: ADMIT Internal Medicine; ATTEND Internal Medicine
PROC: 30233N1 Transfusion of Nonautologous Red Blood Cells into Peripheral Vein, Percutaneous Approach (ICD-10-PCS; 2019-11-11)
PROC: 0W3P8ZZ Control Bleeding in Gastrointestinal Tract, Via Natural or Artificial Opening Endoscopic (ICD-10-PCS; 2019-11-13)
PROC: 0DBP8ZX Excision of Rectum, Via Natural or Artificial Opening Endoscopic, Diagnostic (ICD-10-PCS; principal; 2019-11-13 07:30)
DX: K62.6 Ulcer of anus and rectum (principal); K62.5 Hemorrhage of anus and rectum; D62 Acute posthemorrhagic anemia; E03.9 Hypothyroidism, unspecified; M47.9 Spondylosis, unspecified; G89.29 Other chronic pain; Z96.642 Presence of left artificial hip joint; R00.0 Tachycardia, unspecified; J44.9 Chronic obstructive pulmonary disease, unspecified; Z20.828 Contact with and (suspected) exposure to other viral communicable diseases; Z87.891 Personal history of nicotine dependence; Z88.1 Allergy status to other antibiotic agents; Z82.49 Family history of ischemic heart disease and other diseases of the circulatory system; Z85.038 Personal history of other malignant neoplasm of large intestine; Z92.21 Personal history of antineoplastic chemotherapy
CPT/HCPCS: 36415; 36430; 72197; 80048; 80053; 81001; 83735; 85025; 85027; 85610; 86850; 86900; 86901; 86920; 87635; 88305; 902; 93005; 93010; 96360; 99140; 99285; A9576; C9290; C9803; J1100; J2370; J2405; J3480; J7030; J7040; P9016